=== PATIENT | female | born 1950 | race Caucasian/White ===

== ENCOUNTER 2020-09-05 08:05 | Outpatient (REF) | payer MEDICARE, SELFPAY ==
[2020-09-11 22:51] LABS: HPV 16 RNA DETECTED (NOT DETECTED); HPV mRNA E6/E7 rflx Detected (Not Detected)
== END 2020-09-05 08:06 | disposition home or self-care (01) ==
LOC: HO.LAB 08:05
PROVIDERS: PCP Hospitalist; Visit Provider Advanced Practice Midwife
DX: Z01.419 Encounter for gynecological examination (general) (routine) without abnormal findings (principal); M85.89 Other specified disorders of bone density and structure, multiple sites; Z91.89 Other specified personal risk factors, not elsewhere classified
CPT/HCPCS: 87624; 87625; 88141; 88142

== ENCOUNTER 2020-11-16 08:41 | Outpatient (REF) | payer MEDICARE, SELFPAY | END 2020-11-16 08:42 | disposition home or self-care (01) | LOC: HO.LAB 08:41 | PROVIDERS: PCP Hospitalist; Visit Provider Obstetrics & Gynecology | DX: R87.810 Cervical high risk human papillomavirus (HPV) DNA test positive (principal) | CPT/HCPCS: 57454; 57456; 88305 ==

== ENCOUNTER → 2020-11-30 11:38 | Outpatient (BNVA) | payer MEDICARE, SELFPAY | PROVIDERS: PCP Hospitalist; Visit Provider Obstetrics & Gynecology | DX: R87.810 Cervical high risk human papillomavirus (HPV) DNA test positive (principal) | CPT/HCPCS: Q3014 ==

== ENCOUNTER 2021-06-07 08:45 | Outpatient (REF) | payer MEDICARE, SELFPAY ==
--- NOTE | ~2021-06-07 | MM_ITS ---
EXAMINATION: MM SCREENING DIGITAL BREAST TOMOSYNTHESIS, BILATERAL CLINICAL INFORMATION: Screening. Asymptomatic. The lifetime risk of breast cancer based on the Tyrer-Cuzick Model is 5%. COMPARISON: Mammography: 06/01/2020, 03/04/2019, 03/03/2018 TECHNIQUE: Digital breast tomosynthesis is performed in both the craniocaudal and mediolateral oblique views along with computer-aided detection (CAD). Synthesized 2D images are generated from the tomosynthesis. FINDINGS: There are scattered areas of fibroglandular density (ACR BI-RADS breast composition Category b). There is fine fibronodular parenchymal pattern similar to prior studies. Dominant nodule central outer left breast on CC view is stable from prior exams. No developing density or architectural abnormality. There are scattered benign punctate calcifications. The axilla and skin contours are unremarkable. No significant changes. MM/MM tomosynthesis screening BI IMPRESSION: No mammographic evidence of malignancy. ASSESSMENT: BI-RADS 2: Benign RECOMMENDATION: Routine annual mammography screening. This patient's information was entered into a reminder system with a target due date for their next mammogram.
== END 2021-06-07 08:46 | disposition home or self-care (01) ==
LOC: HO.MAMMO 08:45
PROVIDERS: PCP Hospitalist; Visit Provider Hospitalist
DX: Z12.31 Encounter for screening mammogram for malignant neoplasm of breast (principal)
CPT/HCPCS: 77063; 77067

== ENCOUNTER 2021-09-07 09:28 | Outpatient (REF) | payer MEDICARE, SELFPAY ==
[2021-09-11 21:16] LABS: HPV mRNA E6/E7 rflx Not Detected (Not Detected)
== END 2021-09-07 09:29 | disposition home or self-care (01) ==
LOC: HO.LAB 09:28
PROVIDERS: PCP Hospitalist; Visit Provider Advanced Practice Midwife
DX: Z01.419 Encounter for gynecological examination (general) (routine) without abnormal findings (principal); Z11.51 Encounter for screening for human papillomavirus (HPV); Z91.89 Other specified personal risk factors, not elsewhere classified
CPT/HCPCS: 87624; 88142

== ENCOUNTER 2022-01-15 09:07 | Outpatient (REF) | payer MEDICARE, SELFPAY ==
[2022-01-15 14:49] LABS: CT PCR NOT DETECTED (Not Detect.); NG PCR NOT DETECTED (Not Detect.)
[2022-01-16 09:21] LABS: BV Int Neg Control Negative (Negative); BV Int Pos Control Positive (Positive)
== END 2022-01-15 09:08 | disposition home or self-care (01) ==
LOC: HO.LAB 09:07
PROVIDERS: PCP Hospitalist; Visit Provider Advanced Practice Midwife
DX: G89.29 Other chronic pain (principal); R10.2 Pelvic and perineal pain
CPT/HCPCS: 87480; 87491; 87510; 87591; 87660; 99212

== ENCOUNTER 2022-01-17 10:53 | Outpatient (REF) | payer MEDICARE, SELFPAY ==
--- NOTE | ~2022-01-17 | US_ITS ---
EXAMINATION: US PELVIS CLINICAL INFORMATION: Pelvic and perineal pain; postmenopausal patient. COMPARISON: None TECHNIQUE: Ultrasound of the pelvis is performed using both transabdominal and transvaginal transducers along with Doppler. Transvaginal imaging is performed due to inadequate visualization transabdominally. FINDINGS: Uterus: The uterus is anteverted and anteflexed. The uterus measures 6.6 x 2.7 x 5.3 cm. The double wall endometrial thickness is 1 mm. A 3 mm cyst or minimal fluid collection is seen within the endometrium. The uterus is smooth in contour and has normal myometrial echogenicity. There are myometrial calcifications, likely tiny fibroids. There is prominent myometrial vasculature. No visible fibroid. Nabothian cysts are seen within the cervix. Adnexa: Both ovaries are visualized. There is normal color flow to the adnexa. There is no ovarian torsion. There is no pelvic ascites or fluid collection. Right ovary measures 1.1 x 0.9 x 1.2 cm, volume 0.6 mL. Left ovary measures 1.1 x 0.8 x 1.0 cm, volume 0.5 mL. US/US pelvic and transvaginal IMPRESSION: 1. There are tiny calcified uterine fibroids. 2. Nabothian cysts are seen within the cervix. 3. A 3 mm cyst or tiny fluid collection is seen within the endometrial canal. There is no postmenopausal thickening of the endometrial stripe.
== END 2022-01-17 10:54 | disposition home or self-care (01) ==
LOC: HO.US 10:53
PROVIDERS: PCP Hospitalist; Visit Provider Advanced Practice Midwife
DX: R10.2 Pelvic and perineal pain (principal)
CPT/HCPCS: 76830; 76856

== ENCOUNTER → 2022-01-29 11:16 | Outpatient (BNVA) | payer MEDICARE, SELFPAY | PROVIDERS: PCP Hospitalist; Visit Provider Advanced Practice Midwife | DX: R10.2 Pelvic and perineal pain (principal); N76.0 Acute vaginitis; B96.89 Other specified bacterial agents as the cause of diseases classified elsewhere; Z71.2 Person consulting for explanation of examination or test findings | CPT/HCPCS: Q3014 ==

== ENCOUNTER 2022-02-05 08:32 | Outpatient (REF) | payer MEDICARE, SELFPAY | END 2022-02-05 08:33 | disposition home or self-care (01) | LOC: HO.LAB 08:32 | PROVIDERS: PCP Hospitalist; Visit Provider Obstetrics & Gynecology | DX: R87.610 Atypical squamous cells of undetermined significance on cytologic smear of cervix (ASC-US) (principal) | CPT/HCPCS: 57456; 88305 ==

== ENCOUNTER → 2022-03-11 11:49 | Outpatient (BNVA) | payer MEDICARE, SELFPAY | PROVIDERS: Visit Provider Obstetrics & Gynecology | DX: N87.0 Mild cervical dysplasia (principal) | CPT/HCPCS: Q3014 ==

== ENCOUNTER 2022-06-10 08:41 | Outpatient (REF) | payer MEDICARE, SELFPAY ==
--- NOTE | ~2022-06-10 | MM_ITS ---
EXAMINATION: MM SCREENING DIGITAL BREAST TOMOSYNTHESIS, BILATERAL CLINICAL INFORMATION: Screening. Asymptomatic. The lifetime risk of breast cancer based on the Tyrer-Cuzick Model is 5.1%. COMPARISON: Mammography: 06/07/2021 and studies dating back to 10/25/2013. TECHNIQUE: Digital breast tomosynthesis is performed in both the craniocaudal and mediolateral oblique views along with computer-aided detection (CAD). Synthesized 2D images are generated from the tomosynthesis. FINDINGS: There are scattered areas of fibroglandular density (ACR BI-RADS breast composition Category b). No new abnormal dominant mass is appreciated. Some vascular calcifications are noted within the left breast. Within the inferior aspect of the right breast anteriorly, there is a developing group of calcifications for which spot magnification views in craniocaudal and 90-degree mediolateral views is recommended. MM/MM tomosynthesis screening BI IMPRESSION: Right breast calcifications for further evaluation as described. ASSESSMENT: BI-RADS 0: Incomplete - Need Additional Imaging Evaluation. RECOMMENDATION: 1. Additional views of the right breast. 2. Targeted ultrasound if warranted after review of the additional views. 3. Radiology department staff will contact the patient for additional imaging.
== END 2022-06-10 08:42 | disposition home or self-care (01) ==
LOC: HO.MAMMO 08:41
PROVIDERS: PCP Hospitalist; Visit Provider Hospitalist
DX: Z12.31 Encounter for screening mammogram for malignant neoplasm of breast (principal)
CPT/HCPCS: 77063; 77067

== ENCOUNTER 2022-06-28 13:51 | Outpatient (REF) | payer MEDICARE, SELFPAY ==
--- NOTE | ~2022-06-28 | MM_ITS ---
EXAMINATION: MM DIAGNOSTIC DIGITAL MAMMOGRAPHY, RIGHT CLINICAL INFORMATION: Recall from screening for calcifications central anterior 3:00 right breast. COMPARISON: Mammography: 06/10/2022, 06/07/2021, 06/01/2000. TECHNIQUE: Digital mammography is performed in the following views: Magnification CC, magnification ML. FINDINGS: There are scattered areas of fibroglandular density (ACR BI-RADS breast composition Category b). The additional magnification views show grouped coarse calcifications in the anterior central 3:00 position, suspect fibroadenomatous change. Calcifications will be reassessed again in 6 months to include magnification views. Results are discussed with the patient at time of visit. MM/MM added views RT IMPRESSION: Probable benign calcifications anterior central inner right breast, possibly fibroadenomatous change. ASSESSMENT: BI-RADS 3: Probably Benign RECOMMENDATION: Diagnostic right mammography in 6 months. This patient's information was entered into a reminder system with a target due date for their next mammogram.
== END 2022-06-28 13:52 | disposition home or self-care (01) ==
LOC: HO.MAMMO 13:51
PROVIDERS: PCP Hospitalist; Visit Provider Advanced Practice Midwife
DX: R92.1 Mammographic calcification found on diagnostic imaging of breast (principal)
CPT/HCPCS: 77065

== ENCOUNTER 2023-01-08 14:17 | Outpatient (REF) | payer MEDICARE, SELFPAY ==
--- NOTE | ~2023-01-08 | MM_ITS ---
EXAMINATION: MM DIAGNOSTIC DIGITAL BREAST TOMOSYNTHESIS, RIGHT CLINICAL INFORMATION: Short interval six-month follow-up probable benign calcifications anterior 1:00 right breast, possibly fibroadenomatous change. The lifetime risk of breast cancer based on the Tyrer-Cuzick Model is 5%. COMPARISON: Mammography: 06/28/2022, 06/10/2022 (BI-RADS 0), 06/07/2021, 06/01/2020, 03/04/2019 TECHNIQUE: Digital breast tomosynthesis is performed in both the craniocaudal and mediolateral oblique views along with computer-aided detection (CAD). Synthesized 2D images are generated from the tomosynthesis. Additional magnification right CC and magnification right LM views are obtained. FINDINGS: There are scattered areas of fibroglandular density (ACR BI-RADS breast composition Category b). Fibronodular parenchymal pattern is similar to prior exams. There is no significant mass or architectural abnormality or developing density. The axilla and skin contours are unremarkable. Right breast calcifications for follow-up 1:00 position are coarse and possibly fibroadenomatous change. There are no significant changes. Calcifications will be reassessed at time of annual bilateral mammography, due in 6 months. Results are provided to the patient at time of visit by the technologist. MM/MM tomosynthesis diagnostic RT IMPRESSION: -Probable benign calcifications 1:00 possibly fibroadenomatous change. -No significant changes from prior exam. ASSESSMENT: BI-RADS 3: Probably Benign RECOMMENDATION: Diagnostic mammography at time of annual bilateral mammography, due in 6 months. This patient's information was entered into a reminder system with a target due date for their next mammogram.
== END 2023-01-08 14:18 | disposition home or self-care (01) ==
LOC: HO.MAMMO 14:17
PROVIDERS: PCP Hospitalist; Visit Provider Advanced Practice Midwife
DX: R92.1 Mammographic calcification found on diagnostic imaging of breast (principal)
CPT/HCPCS: 77061; 77065

== ENCOUNTER 2023-03-20 08:34 | Outpatient (REF) | payer MEDICARE, SELFPAY ==
[2023-03-25 10:13] LABS: HPV mRNA E6/E7 rflx Not Detected (Not Detected)
== END 2023-03-20 08:35 | disposition home or self-care (01) ==
LOC: HO.LNP 08:34
PROVIDERS: PCP Hospitalist; Visit Provider Obstetrics & Gynecology
DX: Z01.419 Encounter for gynecological examination (general) (routine) without abnormal findings (principal); Z11.51 Encounter for screening for human papillomavirus (HPV)
CPT/HCPCS: 87624; 88142; G0101

== ENCOUNTER 2023-06-25 12:56 | Outpatient (REF) | payer MEDICARE, SELFPAY ==
--- NOTE | ~2023-06-25 | MM_ITS ---
EXAMINATION: MM DIAGNOSTIC DIGITAL BREAST TOMOSYNTHESIS, BILATERAL CLINICAL INFORMATION: 6 month (second) follow-up right breast calcifications. Patient also due for bilateral screening. COMPARISON: Mammography: 01/08/2023, 06/28/2022, 06/10/2022, 06/07/2021. TECHNIQUE: Digital breast tomosynthesis is performed in both the craniocaudal and mediolateral oblique views along with computer-aided detection (CAD). Synthesized 2D images are generated from the tomosynthesis. In addition, 2-D spot magnification right CC and ML views were performed. FINDINGS: There are scattered areas of fibroglandular density (ACR BI-RADS breast composition Category b). The grouped microcalcifications in the right breast, 1:00 position, anterior one third, are somewhat coarse in appearance, and grossly stable from 6 months prior. There is an underlying lobular mass, suggesting degenerating fibroadenoma. These remain probably benign. Six-month interval follow-up recommended to ensure stability. The somewhat nodular parenchymal pattern is stable from prior exams. Scattered bilateral benign-appearing calcifications remain unchanged. No definite developing mass, area of architectural distortion, or suspicious calcifications. MM/MM tomosynthesis diagnostic BI IMPRESSION: Right breast 1:00 anterior somewhat coarse appearing probably benign calcifications remain stable over one year. These most likely relate to a degenerating fibroadenoma. Recommend 6 month interval follow-up right breast diagnostic mammography to include standard magnification views to ensure stability. Goal is to establish a two-year stability. Otherwise, benign findings both breasts. No findings suspicious for malignancy. ASSESSMENT: BI-RADS BI-RADS 3 - Probably benign finding(s) - 6 month follow-up suggested RECOMMENDATION: 6 Month F/U Results were provided to the patient at time of visit by the technologist. This patient's information was entered into a reminder system with a target due date for their next mammogram.
--- NOTE | ~2023-06-25 | MM_ITS ---
EXAMINATION: BONE DENSITOMETRY CLINICAL INDICATION: Menopausal and female climacteric states. COMPARISON: Previous BD dated 03/04/2019 and baseline BD dated 02/28/2017. TECHNIQUE: Using a [employer] DXA System (software version: 13.1) manufactured by [email or web address], dual-energy x-ray absorptiometry was performed of the lumbar spine and left hip. The images are of good technical quality. Summary results are attached. FINDINGS: LEFT FEMUR, NECK: Current: BMD 0.758 g/cm2, Z-score -0.4, T-score -2.0, osteopenia. Prior: BMD 0.814 g/cm2. Baseline: BMD 0.799 g/cm2. LEFT FEMUR, TOTAL: Current: BMD 0.844 g/cm2, Z-score 0.0, T-score -1.3, osteopenia, 4.8% decrease from previous, 0.5% decrease from baseline (<5% change is not significant). Prior: BMD 0.887 g/cm2. Baseline: BMD 0.848 g/cm2. AP SPINE L1-L4: Current: BMD 1.016 g/cm2, Z-score 0.0, T-score -1.4, osteopenia, 2.7% decrease from previous, 2.9% decrease from baseline (<5% change is not significant). Prior: BMD 1.044 g/cm2. Baseline: BMD 1.046 g/cm2. IDENTIFIED RISK FACTORS: Menopause. HISTORY OF FRACTURE: None listed. MEDICATIONS: None listed. MM/XR DEXA axial skeleton IMPRESSION: 1. DIAGNOSIS: Osteopenia based on the lowest T-score value of -2.0 in the femoral neck applying World Health Organization criteria. 2. 10-YEAR FRACTURE RISK PREDICTION, FRAX: Major osteoporotic fracture (clinical spine, forearm, hip or shoulder) 12.6%. Hip fracture 2.7%. 3. Treatment Recommendations: NOF guidelines recommend consideration for treatment in postmenopausal women and men age 50 and older presenting with the following: -A hip or vertebral (clinical or morphometric) fracture. -T-score less than or equal to -2.5 at the femoral neck or spine after appropriate evaluation to exclude secondary causes. -Low bone mass at the hip or spine and a 10-year fracture probability by FRAX of greater than or equal to 3% for hip fracture or greater than or equal to 20% for major osteoporotic fracture based on the [place] adapted WHO algorithm. 4. Other Recommendations: All treatment decisions require clinical judgment and consideration of individual patient factors, including patient preferences, comorbidities, previous drug use, risk factors not captured in the FRAX model (e.g. frailty, falls, vitamin D deficiency, increased bone turnover, interval significant decline in bone density) and possible under or overestimation of fracture risk by FRAX. Additional medical evaluation for secondary cause of low bone mineral density may be appropriate. FUTURE SCAN RECOMMENDATION: People with diagnosed cases of osteoporosis or at high risk for fracture should have regular bone mineral density tests. For patients eligible for Medicare, routine testing is allowed once every 2 years. The testing frequency can be increased to one year for patients who have rapidly progressing disease, those who are receiving or discontinuing medical therapy to restore bone mass, or have additional risk factors.
== END 2023-06-25 12:57 | disposition home or self-care (01) ==
LOC: HO.MAMMO 12:56
PROVIDERS: Visit Provider Hospitalist
DX: Z13.820 Encounter for screening for osteoporosis (principal); R92.1 Mammographic calcification found on diagnostic imaging of breast; Z78.0 Asymptomatic menopausal state
CPT/HCPCS: 77062; 77066; 77080

== ENCOUNTER → 2023-06-25 13:00 | Outpatient (BNV) | payer MEDICARE, SELFPAY | PROVIDERS: Visit Provider Radiology Diagnostic Radiology | DX: N95.1 Menopausal and female climacteric states (principal) | CPT/HCPCS: 77062; 77066; 77080; G0279 ==

== ENCOUNTER 2023-07-02 08:44 | Outpatient (AMB) | payer MEDICARE, SELFPAY ==
[2023-07-02 09:12] VITALS: BP 104/66; BMI 26.5
--- NOTE | 2023-07-02 09:12 | A.OFFVIS_ITS ---
Intake Vital Signs 07/02/23 09:12 Height 5 ft 8 in Weight 174 lb BMI 26.5 BP 104/66 Intake Visit Reasons: dexa follow up [employer] Coordinator Required: No Allergies No Known Allergies Allergy (Verified 07/02/23 09:13) Is last menstrual period known: No Post menopausal: Yes Patient : No HPI HPI Comments History of Present Illness Details The patient is presenting for follow up regarding DEXA scan results. T score @ spine and femoral Neck respectively were=-1.4 /-2 and 10 year FRAX risk = 12.6/2.7 % for severe osteoporosis and fracture. 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 Hx of varicose veins Hx of Guillain-Ivanhoe syndrome Surgical History Hx of cervical biopsy H/O varicose vein stripping Family History Father Family history of Alzheimer's disease History of dementia Mother Family history of Alzheimer's disease History of dementia Paternal Grandmother Family history of Alzheimer's disease History of dementia Paternal Grandfather Family history of Alzheimer's disease History of dementia Brother History of COPD Social History Housing: Apartment Alcohol intake: current Alcohol intake frequency: a few times a month Patient Tobacco Use Status: Never used Tobacco e-Cigarette/Vaping Use: Never Used Patient : No Current occupational status: unemployed Sexual orientation: Straight/Heterosexual Gender identity: Female Cognitive needs: No Hearing needs: No Vision needs: Yes Female Reproductive History Menstrual Age of Menarche: 15 control method: none Date of last pap smear: 03/21/23 Date of Mammogram: 06/25/23 Date of last Bone Density Screenin06/25/23 Review of Systems Const All systems reviewed & are unremarkable except as noted in HPI and below Reports as per HPI and Reports no additional complaints GI Reports no additional complaints Reports no additional complaints Physical Exam Vital Signs: Last Vital Signs BP 104/66 07/02/23 09:12 BMI result Body Mass Index 26.5 Assessment & Plan Assessment & Plan (1) Osteopenia: Code(s): M85.80 - Other specified disorders of bone density and structure, unspecified site Plan: Discussed with the patient the DEXA results and FRAX risk. FRAX risk and T score showed no evidence of osteoporosis. Discussed with the patient all the options for osteoporosis prevention including lifestyle modifications including Ca+D supplements 1200 mg po qd/800 MIU, Weight bearing exercises and proteine supplements. The patient verbalized understanding and agreed plan will repeat DEXA in 2 years. Coding Level of Care Code Est Pt Level 3 (77503) Diagnoses Osteopenia M85.80
== END 2023-07-02 09:38 | disposition home or self-care (01) ==
PROVIDERS: PCP Hospitalist; Visit Provider Obstetrics & Gynecology
DX: M85.80 Other specified disorders of bone density and structure, unspecified site (principal)
CPT/HCPCS: 99213

== ENCOUNTER → 2023-07-02 08:44 | Outpatient (BNVA) | payer MEDICARE, SELFPAY | PROVIDERS: PCP Hospitalist; Visit Provider Obstetrics & Gynecology | DX: M85.80 Other specified disorders of bone density and structure, unspecified site (principal); Z78.0 Asymptomatic menopausal state | CPT/HCPCS: 99212 ==

== ENCOUNTER 2024-01-06 12:28 | Outpatient (AMB) | payer MEDICARE, SELFPAY ==
[2024-01-06 13:00] VITALS: BP 110/68; PULSE 79; TEMP 36.2; O2SAT 96; BMI 27.2
--- NOTE | 2024-01-06 13:00 | AM.OFFWIN_ITS ---
Intake Vital Signs 01/06/24 13:00 Height 5 ft 8 in Weight 179 lb BMI 27.2 BP 110/68 Blood Pressure Location Lt brachial Position Sitting Pulse 79 Pulse Source Pulse Oximeter Temp 97.1 F Temp Source Temporal Artery Scan Pulse Oximetry (%) 96 Oxygen Delivery Method Room Air Intake Visit Reasons: EP cough congestion dehydrated (lobby) Intake Note: pt is here today cough congestion dehydrated started 2 weeks ago Patient Tobacco Use Status: Never used Tobacco Allergies No Known Allergies Allergy (Verified 01/06/24 13:28) Medication List - Last Reconciled 01/06/24 by Usman Murrieta MD No Known Home Meds Do you need a note to return to daycare/school/sports/work: No HPI EP cough congestion dehydrated (lobby) HPI Details Patient presents for a sick visit. Reporting symptoms of sinus congest ion, sore throat and difficulty swallowing. Low-grade fever. No family member is sick. No recent travel. Patient reports symptoms of malaise and fatigue. 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 Hx of varicose veins Hx of Guillain-Krakow syndrome Surgical History Hx of cervical biopsy H/O varicose vein stripping Family History Father Family history of Alzheimer's disease History of dementia Mother Family history of Alzheimer's disease History of dementia Paternal Grandmother Family history of Alzheimer's disease History of dementia Paternal Grandfather Family history of Alzheimer's disease History of dementia Brother History of COPD Social History Housing: Apartment Alcohol intake: current Alcohol intake frequency: a few times a month Patient Tobacco Use Status: Never used Tobacco e-Cigarette/Vaping Use: Never Used Current occupational status: unemployed Sexual orientation: Straight/Heterosexual Gender identity: Female Cognitive needs: No Hearing needs: No Vision needs: Yes Female Reproductive History Menstrual Age of Menarche: 15 Physical Exam Vital Signs: Last Vital Signs Temp 97.1 F 01/06/24 13:00 Pulse 79 01/06/24 13:00 BP 110/68 01/06/24 13:00 Pulse Ox 96 01/06/24 13:00 Oxygen Delivery Method Room Air 01/06/24 13:00 BMI result Body Mass Index 27.2 Const General: cooperative and healthy appearing Nutritional Appearance: well nourished Orientation/consciousness: patient oriented x3 Limitations: no limitations HEENT Head: Yes normal to inspection Eyes General: appearance normal, both eyes and all related structures Neck Neck: Yes normal visual inspection Chest Chest palpation & inspection: normal palpation of entire chest wall Resp Effort & Inspection: normal respiratory effort Neuro General: patient oriented x3 Assessment & Plan Assessment & Plan (1) Upper respiratory tract infection: Code(s): J06.9 - Acute upper respiratory infection, unspecified Plan: Antibiotics ordered. Increase fluid intake. Tylenol for aches and pains. If symptoms worsen, follow-up here for a recheck. Coding Level of Care Code Est Pt Level 3 (06803) Diagnoses Upper respiratory tract infection J06.9
== END 2024-01-06 13:36 | disposition home or self-care (01) ==
PROVIDERS: PCP Hospitalist; Visit Provider Internal Medicine
DX: J06.9 Acute upper respiratory infection, unspecified (principal)
CPT/HCPCS: 99213

== ENCOUNTER 2024-01-23 12:53 | Outpatient (REF) | payer MEDICARE, SELFPAY ==
--- NOTE | ~2024-01-23 | MM_ITS ---
EXAMINATION: MM DIAGNOSTIC DIGITAL BREAST TOMOSYNTHESIS, RIGHT CLINICAL INFORMATION: 6 month follow-up (third) right breast calcifications which are probably benign upper slightly inner quadrant, anterior one third. COMPARISON: Mammography: 06/25/2023, 01/08/2023, 06/28/2022, 06/10/2022, 06/07/2021. TECHNIQUE: Digital right breast tomosynthesis is performed in both the craniocaudal and mediolateral oblique views along with computer-aided detection (CAD). Synthesized 2D images are generated from the tomosynthesis. In addition to standard views, spot magnification right CC and LM views were obtained of the right breast. FINDINGS: There are scattered areas of fibroglandular density (ACR BI-RADS breast composition Category b). The grouped microcalcifications in the right breast, 1:00 position, anterior one third, are somewhat coarse in appearance, and grossly stable from 6 months prior. There is an underlying lobular mass, suggesting degenerating fibroadenoma. These remain probably benign. Six-month interval follow-up recommended to ensure stability. No new suspicious findings in the right breast. Parenchymal pattern is unchanged from priors. MM/MM tomosynthesis diagnostic RT IMPRESSION: There are no significant changes from prior study. Stable probably benign calcifications 1:00 right breast. Recommend final six-month interval follow-up diagnostic right mammography to include standard magnification views, when the patient is due for bilateral screening. ASSESSMENT: BI-RADS BI-RADS 3 - Probably benign finding(s) - 6 month follow-up suggested RECOMMENDATION: 6 Month F/U Results were provided to the patient at time of visit by the technologist. This patient's information was entered into a reminder system with a target due date for their next mammogram.
== END 2024-01-23 12:54 | disposition home or self-care (01) ==
LOC: HO.MAMMO 12:53
PROVIDERS: PCP Nurse Practitioner Family; Visit Provider Nurse Practitioner Family
DX: R92.1 Mammographic calcification found on diagnostic imaging of breast (principal)
CPT/HCPCS: 77061; 77065

== ENCOUNTER → 2024-01-23 13:00 | Outpatient (BNV) | payer MEDICARE, SELFPAY | PROVIDERS: PCP Nurse Practitioner Family; Visit Provider Radiology Diagnostic Radiology | DX: R92.1 Mammographic calcification found on diagnostic imaging of breast (principal) | CPT/HCPCS: 77065; G0279 ==

== ENCOUNTER 2024-03-24 08:22 | Outpatient (AMB) | payer MEDICARE, SELFPAY ==
--- NOTE | 2024-03-24 08:26 | A.OFFVIS_ITS ---
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 No complaints. 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 Hx of varicose veins Hx of Guillain-[place] syndrome Surgical History Hx of cervical biopsy H/O varicose vein stripping Family History Father Family history of Alzheimer's disease History of dementia Mother Family history of Alzheimer's disease History of dementia Paternal Grandmother Family history of Alzheimer's disease History of dementia Paternal Grandfather Family history of Alzheimer's disease History of dementia Brother History of COPD Social History Housing: Apartment Alcohol intake: current Alcohol intake frequency: a few times a month Patient Tobacco Use Status: Never used Tobacco e-Cigarette/Vaping Use: Never Used Current occupational status: unemployed Sexual orientation: Straight/Heterosexual Gender identity: Female Cognitive needs: No Hearing needs: No Vision needs: Yes Female Reproductive History Menstrual Age of Menarche: 15 Menopause type: natural Total pregnancies: 4 Full term: 2 Number of Living Children: 2 Ab induced: 1 (one baby at 2 month of ) Date of last pap smear: 03/21/23 Date of Mammogram: 01/23/24 Review of Systems Const All systems reviewed & are unremarkable except as noted in HPI and below Card Reports as per HPI Resp Reports as per HPI GI Reports as per HPI and Reports no additional complaints Reports as per HPI Physical Exam Vital Signs: Last Vital Signs BP 120/74 03/24/24 08:27 BMI result Body Mass Index 26.3 Const General: cooperative, healthy appearing and comfortable Chest Chest palpation & inspection: normal inspection of the chest and normal palpation of entire chest wall Breast/axilla inspection: normal inspection of the breasts and normal inspection of the axillae Breast/axilla palpation: normal palpation of the breasts, normal palpation of the axillae and no axillary lymphadenopathy Resp Effort & Inspection: normal respiratory effort Auscultation: clear to auscultation bilaterally Percussion: percussion normal Cardio Palpation: normal PMI Rate: regular rate Rhythm: regular rhythm Heart sounds: no murmurs and no rubs Peripheral pulses: Peripheral pulses 2+ throughout GI Inspection: Yes normal to inspection Palpation (GI): Soft to palpation, nontender, no guarding, not rigid and No hepatosplenomegaly present Percussion: Yes normal to percussion Auscultation: normal bowel sounds Rectal Exam - Female: deferred General: Yes bladder normal to palpation External Female Exam: No lesion Speculum Exam - Vagina: normal appearance of the vagina, normal palpation, normal vaginal discharge and not erythematous Speculum Exam - Cervix: normal appearance of the cervix and normal palpation Bimanual exam- vagina & uterus: normal bimanual exam, normal palpation, uterine size normal, bladder normal to palpation, consistency normal and normal palpation Bimanual Exam- Adnexa, other: normal adnexae, no masses and no tenderness Assessment & Plan Assessment & Plan (1) Well female exam without gynecological exam: Comment: BOBBY 1 in 02/08 Code(s): Z00.00 - Encounter for general adult medical examination without abnormal findings Category: Medical Plan: Co testing done Counseled the patient about the recommended dietary allowance of 1200 mg of Calcium & 800 IU of vitamin D. Instructions given the patient to schedule next screening Mammogram in 08/12. Referred her for screening colonoscopy done. The patient was instructed to perform monthly self-breast exams and to schedule an annual exam in a year; All questions answered and the patient verbalized understanding. Orders: Referrals Gastroenterology Referral Z12.11 - Encounter for screening for malignant neoplasm of colon Coding Level of Care Code Est Pt Prev Care >65y(09554) Diagnoses Well female exam without gynecological exam Z00.00
[2024-03-24 08:27] VITALS: BP 120/74; BMI 26.3
== END 2024-03-24 08:52 | disposition home or self-care (01) ==
PROVIDERS: PCP Hospitalist; Referring Provider Hospitalist; Visit Provider Obstetrics & Gynecology
DX: Z01.419 Encounter for gynecological examination (general) (routine) without abnormal findings (principal)
CPT/HCPCS: G0101; Q0091

== ENCOUNTER 2024-03-24 08:22 | Outpatient (REF) | payer MEDICARE, SELFPAY ==
[2024-04-02 00:38] LABS: HPV mRNA E6/E7 rflx Not Detected (Not Detected)
== END 2024-03-24 08:23 | disposition home or self-care (01) ==
LOC: HO.LNP 08:22
PROVIDERS: PCP Hospitalist; Visit Provider Obstetrics & Gynecology
DX: Z01.419 Encounter for gynecological examination (general) (routine) without abnormal findings (principal)
CPT/HCPCS: 87624; 88142; G0101; Q0091

== ENCOUNTER 2024-04-01 11:24 | Outpatient (AMB) | payer MEDICARE, SELFPAY ==
--- NOTE | 2024-04-01 11:33 | A.OFFPC_ITS ---
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 Eligibility Counselor Required: No Accompanied by: Self / Same As Patient Allergies Seasonal Allergies Allergy (Intermediate, Verified 04/01/24 12:09) Itchy Eyes Medication List - Last Reconciled 04/01/24 by Joanna Pelayo, BUILDING CARPENTER-BC fluticasone propionate 50 mcg/actuation (Flonase Allergy Relief) 1 spray intrana hamzah BID valacyclovir 500 mg PO BID PRN Tobacco use date assessed: 04/01/24 Fall risk assessment: No Falls in past year Last assessed Fall Risk: 04/01/24 Dental Screening Dental Screen Date: 04/01/24 Did you have a dental visit in the last 12 months?: Yes Did you have a dental problem in the last 6 months where you did not have access to dental care?: No Was dental information given to patient?: Patient has dentist HPI HPI Comments History of Present Illness Details 73-year-old female with chronic pelvic p ain, ascus with negative high- risk HPV, herpes, BPPV, osteopenia, high risk of cervical cancer ADRI daughter, obesity, varicose veins, Stephy [place] status post varicose vein stripping Health Maintenance: Last Pap/HPV was in 04/11 was negative, repeat 03/2024 pending Last Mammogram was BI-RADS 3 in 02/10, the recommendation was to repeat in 6 months Cologaurd 04/2022 NEGATIVE Last Colonoscopy was long time ago > referred 03/2024 Last DEXA scan showed osteopenia in 07/12 repeat 2024 Eye exam 6 months ago Specialists: [facility] Here today w/ c/o itchy eyes Known allergies, uses flonase Bought OTC anti-itch eye drops, this made it worse. Burning and itchy. Usually wears contacts and has not been able to wear d/t her sx. Denies any new solution or lenses. Her sx started about 1 month ago. Has teary drainage, scant. Denies being stuck shut in the AM. Denies any changes in vision. 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 Hx of varicose veins Hx of Guillain-[place] syndrome Surgical History Hx of cervical biopsy H/O varicose vein stripping Family History Father Family history of Alzheimer's disease History of dementia Mother Family history of Alzheimer's disease History of dementia Paternal Grandmother Family history of Alzheimer's disease History of dementia Paternal Grandfather Family history of Alzheimer's disease History of dementia Brother History of COPD Social History Housing: Apartment Alcohol intake: current Alcohol intake frequency: a few times a month Patient Tobacco Use Status: Never used Tobacco e-Cigarette/Vaping Use: Never Used service: No Current occupational status: retired Sexual orientation: Straight/Heterosexual Gender identity: Female Cognitive needs: No Hearing needs: No Vision needs: Yes Female Reproductive History Menstrual Age of Menarche: 15 Questionnaire PHQ-9 Over the last 2 weeks, how often have you been bothered by any of the following problems? 1. Little interest or pleasure in doing things: not at all 2. Feeling down, depressed, or hopeless: not at all 3. Trouble falling or staying asleep, or sleeping too much: not at all 4. Feeling tired or having little energy: not at all 5. Poor appetite or overeating: not at all 6. Feeling bad about yourself - or that you are a failure or have let yourself or your family down: not at all 7. Trouble concentrating on things, such as reading the newspaper or watching television: not at all 8. Moving or speaking so slowly that other people could have noticed. Or the opposite - being so fidgety or restless that you have been moving around a lot more than usual: not at all 9. Thoughts that you would be better off or of hurting yourself in some way: not at all Total score: 0 Depression Screening Interpretation: Negative Depression Screening Done: Yes 74183 - PHQ-9 Billing: Yes Source: Developed by Drs. Buddy Saunders, Chey Mejias, Cal Nam and colleagues, with an educational katy from [employer]. Thrive Questionnaire Date Thrive assessed: 04/01/24 I am a: Patient What is your living situation today?: I have a steady place to live Within the past 12 months, did the food you bought not last and you didn't have the money to get more?: Never true Within the past 12 months, did you worry whether your food would run out before you got money to buy more?: Never true Do you have trouble paying for medicines?: No Do you have trouble getting transportation to medical appointments?: No Do you have trouble paying your heating and electricity bill?: No Do you have trouble taking care of your child, family member or friend?: No Do you have trouble with day-to-day activities such as bathing, preparing meals, shopping, managing finances, etc.?: No Are you currently unemployed and looking for a job?: No Are you interested in more education?: No Currently or been in a relationship where the following occur: no concerns reported THRIVE Score: 0 AUDIT C Alcohol Use Questionnaire (AUDIT-C) 1. How often do you have a drink containing alcohol?: Monthly or less 2. How many drinks containing alcohol do you have on a typical day when you are drinking?: 1 or 2 3. How often do you have six or more drinks on one occasion?: Never Total Score: 1 Score Reviewed/Action Taken: Yes CHAD-7 AMB Questionnaire CHAD-7 Date CHAD - 7 assessed: 04/01/24 Feeling nervous, anxious, or on edge: 0 = Not at all Not being able to stop or control worryin = Not at all Worrying too much about different things: 0 = Not at all Trouble relaxin = Not at all Being so restless that it is hard to sit still: 0 = Not at all Becoming easily annoyed or irritable: 0 = Not at all Feeling afraid as if something awful might happen: 0 = Not at all Total CHAD-7 score (0-4 normal; 5-9 mild; 10-14 moderate; 15-21 severe): 0 Source: Developed by Drs. Buddy Saunders, Chey Mejias, Cal Nam and colleagues, with an educational katy from [employer]. CHAD-7 Assessment Billing CHAD-7 Assessment Tool: CHAD-7 Assessment 73728 Review of Systems Const All systems reviewed & are unremarkable except as noted in HPI and below Physical exam (Primary Care) Vital Signs: Last Vital Signs Temp 97.7 F 04/01/24 11:39 Pulse 70 04/01/24 11:39 Resp 14 04/01/24 11:39 BP 102/70 04/01/24 11:39 Pulse Ox 95 04/01/24 11:39 Oxygen Delivery Method Room Air 04/01/24 11:39 BMI result Body Mass Index 27.0 BMI Assessment/Plan discussion: High BMI High, discussed plan: lifestyle Tobacco/Smoking Status: Tobacco use Status Tobacco use date assessed 04/01/24 04/01/24 11:46 Patient Tobacco Use Status Never used Tobacco 04/01/24 11:34 e-Cigarette/Vaping Use Never Used 04/01/24 11:34 PHQ-9: PHQ-9 Score PHQ-9: Total score 0 04/02/24 08:17 Depression Screening Interpretation: Negative Thrive Assessment: Date of Thrive Assessment Date Thrive assessed 04/01/24 04/01/24 11:46 Currently or been in a relationship where the following occur: no concerns reported Advance Care Planning discussion: Exists, not on file Date of discussion: 04/01/24 Who was present: self Forms completed: Health Care Proxy and MOLST Time spent: 1-15 minutes, not on file Actual minutes spent: 5 Const Other: Awake alert NAD Sclera clear bilat, conjunctiva mild injection bilat, no lid edema , drainage or photophobia Nares patent, turbinates pale and edematous, no sinus tenderness with palpation bilat TM intact mild congestion bilat MMM, pharynx WNL RRR LS CTAB Assessment and Plan Assessment & Plan (1) Seasonal allergies: Comment: Likely the cause of her symptoms. Advised to use Zyrtec daily along with azestyline eyedrops. I will re-evaluate her in 2 weeks' time for effectiveness Code(s): J30.2 - Other seasonal allergic rhinitis (2) Osteopenia: Code(s): M85.80 - Other specified disorders of bone density and structure, unspecified site Qualifiers: Osteopenia location: unspecified Qualified Code(s): M85.80 - Other specified disorders of bone density and structure, unspecified site (3) Menopausal state: Code(s): N95.1 - Menopausal and female climacteric states Plan: This note is constructed using voice recognition software. While every effort has been made to ensure accuracy in farm implement engine mechanic, still errors may have been included Sometimes, these errors may affect the content or meaning of the given sentence . Total time spent caring for the patient today was 30 minutes. This includes time spent before the visit reviewing the chart, time spent during the visit, and time spent after the visit on documentation Orders: Orders Comprehensive Met. Panel 04/01/24 M85.80 - Other specified disorders of bone density and structure, unspecified site, N95.1 - Menopausal and female climacteric states Microalbumin, Random (w Creat) 04/01/24 M85.80 - Other specified disorders of bone density and structure, unspecified site, N95.1 - Menopausal and female climacteric states LDL Cholesterol Direct 04/01/24 M85.80 - Other specified disorders of bone density and structure, unspecified site, N95.1 - Menopausal and female climacteric states Hemoglobin A1c 04/01/24 M85.80 - Other specified disorders of bone density and structure, unspecified site, N95.1 - Menopausal and female climacteric states TSH reflex Free T4 04/01/24 M85.80 - Other specified disorders of bone density and structure, unspecified site, N95.1 - Menopausal and female climacteric states Vitamin D 1,25 dihydroxy 04/01/24 M85.80 - Other specified disorders of bone density and structure, unspecified site, N95.1 - Menopausal and female climacteric states Medications: New cetirizine (Zyrtec) 10 mg PO DAILY 90 tabs 0RF azelastine 0.05% 1 drp ophthalmic (eye) BID 6 mL 0RF 30 days Patient Instructions: Use allergy medication allergy eyedrops as directed. Please get labs done today. Return to office in 2 weeks' time to follow up on chronic conditions, and lab review as well as follow up on effectiveness of the treatment rendered for your itchy eyes. Sooner as needed. Coding Level of Care Code Est Pt Level 4 (49179) Diagnoses Seasonal allergies J30.2 Osteopenia, unspecified location M85.80 Osteopenia location: unspecified Menopausal state N95.1 Additional Codes CHAD-7 Assessment Billing - CHAD-7 Assessment Tool: CHAD-7 Assessment 97093 ([id number]) Vital Signs *Quality* - Advance Care Planning discussion: Exists, not on file ([id number]) Vital Signs *Quality* - Time spent: 1-15 minutes, not on file ([id number])
[2024-04-01 11:39] VITALS: BP 102/70; PULSE 70; RESP 14; TEMP 36.5; O2SAT 95; BMI 27.0
== END 2024-04-01 12:41 | disposition home or self-care (01) ==
PROVIDERS: PCP Nurse Practitioner Family; Visit Provider Nurse Practitioner Family
DX: J30.2 Other seasonal allergic rhinitis (principal); M85.80 Other specified disorders of bone density and structure, unspecified site; N95.1 Menopausal and female climacteric states; Z00.00 Encounter for general adult medical examination without abnormal findings
CPT/HCPCS: 1124F; 99214

== ENCOUNTER 2024-04-01 12:28 | Outpatient (REF) | payer MEDICARE, SELFPAY ==
[2024-04-01 14:48] LABS: Estimated Average Glucose 111 mg/dL; Hemoglobin A1c % 5.5 % (<6.0)
[2024-04-01 14:59] LABS: Alanine Aminotransferase 15 U/L (0-31); Albumin Level 4.3 g/dL (3.5-5.0); Alkaline Phosphatase 65 U/L (39-117); Anion Gap 9 (12-20); Aspartate Amino Transferase 21 U/L (5-31); Bilirubin Total 1.6 mg/dL (0.0-1.0); Blood Urea Nitrogen 10 mg/dL (9-16); Calcium 9.8 mg/dL (8.4-10.2); Carbon Dioxide 27 mmol/L (22-29); Chloride 106 mmol/L (96-108); Estimated Glomerular Filt Rate > 60; Glucose Random 92 mg/dL (60-115); Potassium 3.6 mmol/L (3.3-5.1); Sodium 138 mmol/L (135-145); Total Protein 7.4 g/dL (6.5-8.0)
[2024-04-01 15:18] LABS: TSH reflex Free T4 1.39 uIU/mL (0.32-4.0)
[2024-04-01 15:29] LABS: Creatinine Urine 18.81 mg/dL; Microalbumin Urine < 5.0 mg/L
[2024-04-02 12:13] LABS: LDL Cholesterol Direct 146 mg/dL (<100)
[2024-04-06 00:19] LABS: VITAMIN D (1,25 OH) D3 52 pg/mL; Vit D (1,25-Dihydroxy) Total 52 pg/mL (18-72); Vitamin D (1,25 OH) D2 <8 pg/mL
== END 2024-04-01 12:29 | disposition home or self-care (01) ==
LOC: HO.WFDLDS 12:28
PROVIDERS: Visit Provider Nurse Practitioner Family
DX: M85.80 Other specified disorders of bone density and structure, unspecified site (principal); N95.1 Menopausal and female climacteric states
CPT/HCPCS: 36415; 80053; 82043; 82570; 82652; 83036; 83721; 84443

== ENCOUNTER 2024-04-20 08:58 | Outpatient (AMB) | payer MEDICARE, SELFPAY ==
--- NOTE | 2024-04-20 09:09 | MHC.PC.OV ---
Intake Visit Reasons: 2 weeks w me 30 min fu labs and eye itching Allergies Seasonal Allergies Allergy (Intermediate, Verified 04/20/24 09:09) Itchy Eyes Tobacco use date assessed: 04/01/24 Dental Screening Dental Screen Date: 04/01/24 HPI HPI Comments History of Present Illness Details 73-year-old female with chronic pelvic pain, ascus with negative high-risk HPV, herpes, BPPV, osteopenia, high risk of cervical cancer ADRI daughter, obesity, varicose veins, Stephy [place], Hyperlipidemia status post varicose vein stripping Health Maintenance: Last Pap/HPV was in 04/11 was negative, repeat 03/2024 pending Last Mammogram was BI-RADS 3 in 02/10, the recommendation was to repeat in 6 months Cologaurd 04/2022 NEGATIVE Last Colonoscopy was long time ago > referred 03/2024 Last DEXA scan showed osteopenia in 07/12 repeat 2024 Specialists: [facility] Labs from 04/01/2024 show a normal CMP with the exception of a mildly elevated total bilirubin 1.6, elevated direct LDL 146, normal vitamin-D, normal TSH, normal urine micro albumin creatinine ratio PFSH Medical History History of abnormal cervical Pap smear HPV (human papilloma virus) infection Osteopenia High risk for cervical cancer 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 Hx of varicose veins Hx of Guillain-[place] syndrome Surgical History Hx of cervical biopsy H/O varicose vein stripping Family History Father Family history of Alzheimer's disease History of dementia Mother Family history of Alzheimer's disease History of dementia Paternal Grandmother Family history of Alzheimer's disease History of dementia Paternal Grandfather Family history of Alzheimer's disease History of dementia Brother History of COPD Social History Housing: Apartment Alcohol intake: current Alcohol intake frequency: a few times a month Patient Tobacco Use Status: Never used Tobacco e-Cigarette/Vaping Use: Never Used service: No Current occupational status: retired Sexual orientation: Straight/Heterosexual Gender identity: Female Cognitive needs: No Hearing needs: No Vision needs: Yes Female Reproductive History Menstrual Age of Menarche: 15 Questionnaire Thrive Questionnaire Date Thrive assessed: 04/01/24 CHAD-7 AMB Questionnaire CHAD-7 Date CHAD - 7 assessed: 04/01/24 Source: Developed by Drs. Buddy Saunders, Chey Mejias, Cal Nam and colleagues, with an educational katy from [email or web address]. Physical exam (Primary Care) Tobacco/Smoking Status: Tobacco use Status Tobacco use date assessed 04/01/24 04/01/24 11:46 Patient Tobacco Use Status Never used Tobacco 04/01/24 11:34 e-Cigarette/Vaping Use Never Used 04/01/24 11:34 Thrive Assessment: Date of Thrive Assessment Date Thrive assessed 04/01/24 04/01/24 11:46 Coding
[2024-04-20 09:10] VITALS: BP 128/62; PULSE 67; O2SAT 97; BMI 27.2
--- NOTE | 2024-04-20 09:16 | AM.OFFVISMDC ---
Intake Vital Signs 04/20/24 09:10 04/20/24 09:18 Height 5 ft 8 in Weight 179 lb BMI 27.2 27.2 BP 128/62 Blood Pressure Location Lt brachial Position Sitting Pulse 67 Pulse Source Pulse Oximeter Pulse Oximetry (%) 97 Oxygen Delivery Method Room Air Intake Visit Reasons: 2 weeks w me 30 min fu labs and eye itching Allergies Seasonal Allergies Allergy (Intermediate, Verified 04/20/24 09:09) Itchy Eyes Medication List - Last Reconciled 04/20/24 by Joanna Pelayo, [facility]- azelastine 0.05% 1 drp ophthalmic (eye) BID 30 days cetirizine (Zyrtec) 10 mg PO DAILY fluticasone propionate 50 mcg/actuation (Flonase Allergy Relief) 1 spray intranasal BID valacyclovir 500 mg PO BID PRN HPI HPI Comments History of Present Illness Details Here today for AWV. 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), Hyperlipidemia, squamous cell ca left arm status post varicose vein stripping Health Maintenance: Last Pap/HPV was in 04/11 was negative, repeat 03/2024 pending Last Mammogram was BI-RADS 3 in 02/10, the recommendation was to repeat in 6 months Cologaurd 04/2022 NEGATIVE Last Colonoscopy was long time ago > referred 03/2024 Last DEXA scan showed osteopenia in 07/12 repeat 2024 PCV reports vaccines x 2 declined shingles & tdap Vision wears glasses, last exam 06/2023 Specialists: [facility] Family hx: Only change is sister now has Afib otherwise no change No new surgeries/hospitalizations HCP in the works, has MOLST at home not completed yet Zyrtec and eye drops working well with resolution of sx. reported 2 weeks ago. No more eye twitching. Screening labs from 04/01/2024 show a normal CMP with the exception of a mildly elevated total bilirubin 1.6, elevated direct LDL 146, normal vitamin-D, normal TSH, normal urine micro albumin creatinine ratio reviewed w/ her today. > declined meds at this time for cholesterol, wishes to try lifestyles and repeat labs in 1 year, aware goal LDL < 70 In regards to elevated bili, she offers no abd complaints General: Well developed, well nourished, in no acute distress. Appears stated age. Head: Normocephalic, atraumatic. Eyes: Pupils are equal, round and reactive to light and accommodation. Conjunctivae are clear. Vision grossly normal. Ears: TMs intact AU with trace effusions, EACS WNL Nose: Patent, without discharge. Mouth: There are no ulcers or lesions noted. No inflammation, no post nasal drip, no plaques nor exudates. Neck: Supple, no adenopathy or thyromegaly. Lungs: Clear to auscultation bilaterally. No rales, rhonchi or wheeze noted. Good air flow in all parks. Heart: Regular rate and rhythm. No murmurs, click, rubs or gallops are noted. Abdomen: Bowel sounds present in all quadrants. The abdomen is soft, nontender, with no masses or organomegaly noted. No hernias are noted. Musculoskeletal: Joints are nontender, without swelling, redness, or effusions. Range of motion is observed to be normal. Pulses: Peripheral pulses are equal and palpable bilaterally. Extremities: No clubbing, cyanosis nor edema is noted. + varicosities Neurologic: Gait and station normal. Cranial Nerves 2-12 intact. Motor strength grossly symmetrical and intact. No sensory loss. Balance normal. Skin: No rashes, ulcers, or lesions noted. Turgor is good. Skin color is good. Hair and nails are without abnormalities. Psych: Normal eye contact, affect and mood appropriate, and normal interactions. Patient is alert and appropriate to context. [facility] Medical History History of abnormal cervical Pap smear HPV (human papilloma virus) infection Osteopenia High risk for cervical cancer 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 Hx of varicose veins Hx of Guillain-Glyndon syndrome Surgical History Hx of cervical biopsy H/O varicose vein stripping Family History Father Family history of Alzheimer's disease History of dementia Mother Family history of Alzheimer's disease History of dementia Paternal Grandmother Family history of Alzheimer's disease History of dementia Paternal Grandfather Family history of Alzheimer's disease History of dementia Brother History of COPD Social History Housing: Apartment Alcohol intake: current Alcohol intake frequency: a few times a month Patient Tobacco Use Status: Never used Tobacco e-Cigarette/Vaping Use: Never Used service: No Current occupational status: retired Sexual orientation: Straight/Heterosexual Gender identity: Female Cognitive needs: No Hearing needs: No Vision needs: Yes Female Reproductive History Menstrual Age of Menarche: 15 Questionnaire Medicare Wellness Checkup What [age]?: [age] What gender do you identify with?: female During the past 4 weeks, how much have you been bothered by emotional problems such as feeling anxious, depressed, irritable, sad or downhearted, and blue?: not at all During the past 4 weeks, has your physical & emotional health limited your social activities with family, friends, neighbors, or groups?: not at all During the past 4 weeks, how much bodily pain have you generally had?: no pain During the past 4 weeks, was someone available to help you if you needed & wanted help?: yes, as much as I wanted During the past 4 weeks, what was the hardest physical activity you could do for at least 2 minutes?: very heavy Can you get to places out of walking distance without help? (For eg., can you travel alone on buses, taxis or drive your car?): Yes Can you go shopping for groceries or clothes without someone's help?: Yes Can you prepare your own meals?: Yes Can you do your housework without help?: Yes Because of any health problems, do you need the help of another person with your personal care needs such as eating, bathing, dressing or getting around the house?: Yes Can you handle your own money without help?: Yes During the past 4 weeks, how would you rate your health in general?: excellent During the past 4 weeks how have things been going for you?: very well; could hardly better Are you having difficulties driving your car?: no Do you always fasten your seat belt when you are in a car?: yes, usually During past 4 weeks, have you been bothered by the following: never: Falling or dizzy when standing up, Sexual problems?, Trouble eating well?, Teeth or denture problems?, Problems using the telephone? and Tiredness or fatigue? Have you fallen 2 or more times in the past year?: No Are you afraid of falling?: No Are you a smoker?: no During the past 4 weeks, how many drinks of wine, beer, or other alcoholic beverages did you have?: 1 drink or less per week Do you exercise for about 20 minutes 3 or more times a week?: yes, all the time Have you been given information to help with the following?: no: Hazards in your house that might hurt you? and no: Keeping track of your medications? How often do you have trouble taking medicines the way you have been told to take them?: I always take medicine as prescribed How confident are you that you can control & manage most of your health problems?: very confident What is your race?: White Mini Mental State Exam (MMSE) Orientation What is the (year) (season) (date) (day) (month)?: year, season, date, day and month Where are we (state) (county) (town or city) (hospital) (floor)?: state, county, town or city, hospital/clinic and floor Registration Name of 3 unrelated objects clearly and slowly, then ask patient to repeat all 3 of them. (1st repeat determines score. Make sure they can repeat all three): object 1, object 2 and object 3 Attention & Calculation (CHOOSE ONE) Spell WORLD backwards (DLROW): 5 letters Recall Ask patient to repeat the 3 items from question #3.: object 1, object 2 and object 3 Language Show patient a wristwatch & ask what it is. Repeat for pencil.: watch and pencil Ask the patient to repeat the phrase 'No ifs, ands, or buts' after you.: correct Ask the patient to 'take a piece of paper with their right hand' 'fold paper in half' 'place paper on floor': take paper in right hand, fold paper in half and place paper on floor Print the sentence 'CLOSE YOUR EYES' on a piece. If patient actually closes eyes then score.: followed written direction Give patient a blank piece of paper & ask to write a sentence. Score if it contains a noun & verb.: sentence contains subject and verb Ask patient to copy figure of intersecting pentagons exactly. Score if all 10 angles & 2 intersects are included.: all 10 angles present & 2 are intersected Score Score: 30 Activity of Daily Living Bathing - sponge bath, tub bath or shower: receives no assistance (gets in/out by self, if usual bathing means Dressing - getting clothes from closets & drawers, including inner/outer garments & fasteners.: gets clothes & gets completely dressed without help Toileting - going to the 'toilet room' for urine/bowel elimination & cleaning self/arranging clothes: goes to toilet room, cleans self, arranges clothes without help Transfer: moves in & out of bed and chair without help (may use support object) Continence: controls urination/bowel movements completely by self Feeding: feeds self without help Total Score: 0 Information obtained from: patient Traveling: independent Shopping: independent Preparing meals: independent Housework: independent Taking medicine: independent Managing money: independent PHQ-9 Over the last 2 weeks, how often have you been bothered by any of the following problems? 1. Little interest or pleasure in doing things: not at all 2. Feeling down, depressed, or hopeless: not at all 3. Trouble falling or staying asleep, or sleeping too much: not at all 4. Feeling tired or having little energy: not at all 5. Poor appetite or overeating: not at all 6. Feeling bad about yourself - or that you are a failure or have let yourself or your family down: not at all 7. Trouble concentrating on things, such as reading the newspaper or watching television: not at all 8. Moving or speaking so slowly that other people could have noticed. Or the opposite - being so fidgety or restless that you have been moving around a lot more than usual: not at all 9. Thoughts that you would be better off or of hurting yourself in some way: not at all Total score: 0 Depression Screening Interpretation: Negative Depression Screening Done: Yes 94059 - PHQ-9 Billing: Yes Source: Developed by Drs. Buddy Saunders, Chey Mejias, Cal Nam and colleagues, with an educational katy from [employer] Physical Exam Vital Signs: Last Vital Signs Pulse 67 04/20/24 09:10 BP 128/62 04/20/24 09:10 Pulse Ox 97 04/20/24 09:10 Oxygen Delivery Method Room Air 04/20/24 09:10 BMI result Body Mass Index 27.2 Office Procedures EKG [id number], Complete Assessment & Plan Assessment & Plan (1) Encounter for annual wellness visit (AWV) in Medicare patient: Code(s): Z00.00 - Encounter for general adult medical examination without abnormal findings (2) Osteopenia: Code(s): M85.80 - Other specified disorders of bone density and structure, unspecified site Qualifiers: Osteopenia location: unspecified Qualified Code(s): M85.80 - Other specified disorders of bone density and structure, unspecified site Plan: . (3) Menopausal state: Code(s): N95.1 - Menopausal and female climacteric states (4) Hyperlipidemia: Code(s): E78.5 - Hyperlipidemia, unspecified Qualifiers: Hyperlipidemia type: mixed hyperlipidemia Qualified Code(s): E78.2 - Mixed hyperlipidemia (5) Seasonal allergies: Comment: resolved w/ Zyrtec daily along with azestyline eyedrops. Code(s): J30.2 - Other seasonal allergic rhinitis Plan: . Plan . Orders: Orders Hemoglobin A1c 04/19/25 E78.5 - Hyperlipidemia, unspecified, M85.80 - Other specified disorders of bone density and structure, unspecified site, N95.1 - Menopausal and female climacteric states Lipid Panel 04/19/25 E78.5 - Hyperlipidemia, unspecified, M85.80 - Other specified disorders of bone density and structure, unspecified site, N95.1 - Menopausal and female climacteric states AMB EKG-In Office Today Z00.00 - Encounter for general adult medical examination without abnormal findings Comprehensive Jackson. Panel Fast 04/19/25 E78.5 - Hyperlipidemia, unspecified, M85.80 - Other specified disorders of bone density and structure, unspecified site, N95.1 - Menopausal and female climacteric states Vitamin D 25-OH Total 04/19/25 E78.5 - Hyperlipidemia, unspecified, M85.80 - Other specified disorders of bone density and structure, unspecified site, N95.1 - Menopausal and female climacteric states Patient Instructions: Return to the office in 1 year for an annual wellness visit, sooner as needed. Health screenings for women You should visit your health care provider from time to time, even if you are healthy. The purpose of these visits is to: Screen for medical issues Assess your risk for future medical problems Encourage a healthy lifestyle Update vaccinations and other preventive care services Help you get to know your provider in case of an illness Information Even if you feel fine, you should still see your provider for regular checkups. These visits can help you avoid problems in the future. For example, the only way to find out if you have high blood pressure is to have it checked regularly. High blood sugar and high cholesterol levels also may not have any symptoms in the early stages. A simple blood test can check for these conditions. There are specific times when you should see your provider or receive specific health screenings. The [place] Preventive Services Task Force publishes a list of recommended screenings. Below are screening guidelines for women ages 18 to 39. BLOOD PRESSURE SCREENING Your blood pressure should be checked at least once every 3 to 5 years if: Your blood pressure is in the normal range (top number less than 120 mm Hg and bottom number less than 80 mm Hg) You don't have risk factors for high blood pressure Ask your provider if you need your blood pressure checked more often if: The top number is 120 to 129 mm Hg or the bottom number is 70 to 79 mm Hg You have diabetes, heart disease, kidney problems, are overweight, or have certain other health conditions You have a first-degree relative with high blood pressure You are Black You had high blood pressure during a If the top number is 130 mm Hg or greater or the bottom number is 80 mm Hg or greater, this is considered stage 1 hypertension. Schedule an appointment with your provider to learn how you can reduce your blood pressure. Watch for blood pressure screenings in your area. Ask your provider if you can stop in to have your blood pressure checked. BREAST CANCER SCREENING Experts do not agree about the benefits of breast self-exams in finding breast cancer or saving lives. Talk to your provider about what is best for you. A screening mammogram is not recommended for most women under age 40. Your provider may discuss and recommend mammograms, MRI scans, or ultrasounds if you have an increased risk for breast cancer, such as: A mother or sister who had breast cancer at a young age (most often starting screening earlier than the age the close relative was diagnosed) You carry a high-risk genetic marker CERVICAL CANCER SCREENING Cervical cancer screening should start at age 21 years unless your provider advises otherwise. After the first test: Women ages 21 through 29 should have a Pap test every 3 years. Exoprts do not agree on whether HPV testing is recommended for this age group. Women ages 30 through 65 should be screened with either a Pap test every 3 years or the HPV test every 5 years or both tests every 5 years (called cotesting ). Women who have been treated for precancer (cervical dysplasia) should continue to have Pap tests for 20 years after treatment or until age 65, whichever is longer. If you have had your uterus and cervix removed (total hysterectomy), and you have not been diagnosed with cervical cancer or precancer (high grade cervical neoplasia), you do not need cervical cancer screening. CHOLESTEROL SCREENING Cholesterol screening should begin at: Age 45 for women with no known risk factors for coronary heart disease Age 20 for women with known risk factors for coronary heart disease Repeat cholesterol screening should take place: Every 5 years for women with normal cholesterol levels More often if changes occur in lifestyle (including weight gain and diet) More often if you have diabetes, heart disease, kidney problems, or certain other conditions DIABETES SCREENING You should be screened for diabetes starting at age 35 and then repeated every 3 years if you have no risk factors for diabetes. Screening may need to start earlier and be repeated more often if you have other risk factors for diabetes, such as: You have a first degree relative with diabetes. You are overweight or have obesity. You have high blood pressure, prediabetes, or a history of heart disease. Screening for diabetes should be done if you are planning to become and you are overweight and have other risk factors such as high blood pressure. DENTAL EXAM Go to the dentist once or twice every year for an exam and cleaning. Your dentist will evaluate if you need more frequent visits. EYE EXAM Have an eye exam every 5 to 10 years before age 40. If you have vision problems, have an eye exam every 2 years or more often if recommended by your provider. You should have an eye exam that includes an examination of your retina (back of your eye) at least every year if you have diabetes. IMMUNIZATIONS Commonly needed vaccines include: Flu shot: get one every year. COVID-19 vaccine: ask your provider what is best for you. Tetanus-diphtheria and acellular pertussis (Tdap) vaccine: have one at or after age 19 as one of your tetanus-diphtheria vaccines if you did not receive it as an adolescent. Tetanus-diphtheria: have a booster (or Tdap) every 10 years. Varicella vaccine: receive 2 doses if you never had chickenpox or the varicella vaccine. Hepatitis B vaccine: receive 2, 3, or 4 doses, depending on your exact circumstances. Measles, mumps, and rubella (MMR) vaccine: receive 1 to 2 doses if you are not already immune to MMR. Your provider can tell you if you are immune. Ask your provider about the human papillomavirus (HPV) vaccine if: You have not received the HPV vaccine in the past You have not completed the full vaccine series (you should catch up on this shot) Ask your provider if you should receive other immunizations if you have certain health problems that increase your risk for some diseases such as pneumonia. INFECTIOUS DISEASE SCREENING Women who are sexually active should be screened for chlamydia and gonorrhea up until age 25. Women 25 years and older should be screened for chlamydia and gonorrhea if at high risk. Screening for hepatitis C: All adults ages 18 to 79 should get a one-time test for hepatitis C. people should be screened at every . Screening for human immunodeficiency virus (HIV): All people ages 15 to 65 should get a one-time test for HIV. Depending on your lifestyle and medical history, you may also need to be screened for infections such as syphilis and HIV, as well as other infections. PHYSICAL EXAM All adults should visit their provider from time to time, even if they are healthy. The purpose of these visits is to: Screen for disease Assess your risk of future medical problems Encourage a healthy lifestyle Update your vaccinations and other preventive care services Maintain a relationship with a provider in case of an illness Your height, weight, and BMI should be checked at every exam. During your exam, your provider may ask you about: Depression and anxiety Diet and exercise Alcohol and tobacco use Safety issues, such as using seat belts, smoke detectors, and intimate partner violence Your medicines and risk for interactions SKIN SELF-EXAM Your provider may check your skin for signs of skin cancer, especially if you're at high risk, such as if you: Have had skin cancer before Have close relatives with skin cancer Have a weakened immune system OTHER SCREENING Talk with your provider about colon cancer screening if you have a strong family history of colon cancer or polyps, or if you have had inflammatory bowel disease or polyps yourself. Routine bone density screening of women under 40 is not recommended. Quality Reporting (2019) Adult ([facility] 138//) Smoking risk assessment performed?: Yes Patient Tobacco Use Status: Never used Tobacco Depression screening performed: Yes Screen Results: Yes Negative screen Recommended changes: lifestyle, dietary and physical activity Recommended changes not done: lifestyle, dietary, physical activity and EKG Patient refused: No Systolic BP not done?: Yes Diastolic BP not done?: Yes BMI screening not done: No BMI High - Follow Up: No High-plan, No Above normal medication not ordered and No Referral not ordered BMI Low - Follow Up: No Low-plan, No Below normal medication not ordered and No Referral not ordered Controlling High BP: No Dialysis care, No Dialysis care assessment, No Dialysis access maint and No Dialysis education Immunizations ([facility] 147, 117) Annual Influenza Vaccine: No Flu Vaccine not done: medical reason Diabetes ([facility] 131/134/142) Diabetes Urine Protein: No Dialysis care, No Dialysis care assessment, No Dialysis access maint and No Dialysis education Fall Risk Screening ([facility] 139) Last assessed Fall Risk: 04/20/24 Fall risk assessment: No Falls in past year Dementia Assessment ([facility] 149) Cognitive assessment recorded: Yes Assessment of cognition with standardized tool: Yes Depression/Bipolar (159/160/161/177) PHQ-9: Total score: 0 Coding Level of Care Code Medicare First (G0438) Diagnoses Encounter for annual wellness visit (AWV) in Medicare patient Z00.00 Osteopenia, unspecified location M85.80 Osteopenia location: unspecified Menopausal state N95.1 Mixed hyperlipidemia E78.2 Hyperlipidemia type: mixed hyperlipidemia Seasonal allergies J30.2 CPT Codes Advance Care Planning - Time spent: 1-15 minutes, not on file ([id number]) EKG - CPT: [id number], Complete ([id number]) Advance Care Planning Advance Care Planning discussion: Exists, not on file Date of discussion: 04/20/24 Who was present: self Forms completed: Health Care Proxy and MOLST Time spent: 1-15 minutes, not on file Actual minutes spent: 5 Did not discuss due to Cultural/Spiritual beliefs: No
[2024-04-20 09:18] VITALS: BMI 27.2
== END 2024-04-20 09:59 | disposition home or self-care (01) ==
PROVIDERS: PCP Nurse Practitioner Family; Visit Provider Nurse Practitioner Family
DX: Z00.00 Encounter for general adult medical examination without abnormal findings (principal); M85.80 Other specified disorders of bone density and structure, unspecified site; N95.1 Menopausal and female climacteric states; E78.2 Mixed hyperlipidemia; J30.2 Other seasonal allergic rhinitis
CPT/HCPCS: 1124F; 93000; G0438

== ENCOUNTER 2024-07-29 10:53 | Outpatient (REF) | payer MEDICARE, SELFPAY ==
--- NOTE | ~2024-07-29 | MM_ITS ---
EXAMINATION: MM DIAGNOSTIC DIGITAL BREAST TOMOSYNTHESIS, BILATERAL CLINICAL INFORMATION: Six-month follow-up (final, for 2 year stability) probably benign calcifications anterior right breast, 3:00 axis. Patient also due for yearly. COMPARISON: Mammography: 01/23/2024, 06/25/2023, 01/08/2023, 06/28/2022 (BI-RADS 0), 06/10/2022, and exams dating back to 2017. TECHNIQUE: Digital breast tomosynthesis is performed in both the craniocaudal and mediolateral oblique views along with computer-aided detection (CAD). Synthesized 2D images are generated from the tomosynthesis. In addition, 2-D spot magnification right CC and right ML view x2 were also obtained. FINDINGS: There are scattered areas of fibroglandular density (ACR BI-RADS breast composition Category b). 3 probably benign calcifications in the anterior 3:00 right breast have become slightly more coarsened in the interval between 06/28/2022 and today, with no new calcifications. These are benign, with no evidence of aggressive casino change attendant 2 years. No further follow-up recommended. Otherwise, there are early benign vascular calcifications in the left breast. There are no suspicious masses, new suspicious grouped calcifications, or areas of architectural distortion in either breast. The somewhat nodular parenchymal pattern is stable from numerous prior exams. There is no skin or axillary abnormality. MM/MM tomosynthesis diagnostic BI IMPRESSION: -There are no findings suspicious for malignancy in either breast. -Calcifications in the anterior right breast 3:00 axis are benign, with no aggressive changes over two-year period. No further follow-up recommended. -Recommend the patient return to routine annual screening mammography. ASSESSMENT: BI-RADS BI-RADS 2 - Benign Findings RECOMMENDATION: 1 year F/U Results were provided to the patient at time of visit by the technologist. This patient's information was entered into a reminder system with a target due date for their next mammogram. Electronically signed by: Familia Malik MD 07/29/2024 12:29 PM EDT
== END 2024-07-29 10:54 | disposition home or self-care (01) ==
LOC: HO.MAMMO 10:53
PROVIDERS: PCP Nurse Practitioner Family; Visit Provider Nurse Practitioner Family
DX: R92.1 Mammographic calcification found on diagnostic imaging of breast (principal)
CPT/HCPCS: 77062; 77066

== ENCOUNTER → 2024-07-29 11:00 | Outpatient (BNV) | payer MEDICARE, SELFPAY | PROVIDERS: PCP Nurse Practitioner Family; Visit Provider Radiology Diagnostic Radiology | DX: R92.1 Mammographic calcification found on diagnostic imaging of breast (principal) | CPT/HCPCS: 77066; G0279 ==

== ENCOUNTER 2024-12-30 10:11 | Outpatient (AMB) | payer MEDICARE, SELFPAY ==
--- NOTE | 2024-12-30 10:20 | AM.OFFWIN_ITS ---
Intake Vital Signs 12/30/24 10:22 Weight 182 lb BP 120/78 Blood Pressure Location Lt brachial Position Sitting Pulse 68 Pulse Source Pulse Oximeter Pulse Oximetry (%) 98 Oxygen Delivery Method Room Air Intake Visit Reasons: EP-racing heart when exercising Intake Note: Patient here for elevated HR while exercising that she noticed within the last month or so. Patient Tobacco Use Status: Never used Tobacco Allergies Seasonal Allergies Allergy (Intermediate, Verified 12/30/24 10:23) Itchy Eyes Do you need a note to return to daycare/school/sports/work: No HPI HPI Comments History of Present Illness Details History of Present Illness - The patient is a 74-year-old female pr esenting with concerns of an elevated heart rate and increased shortness of breath. - She has noted an elevated heart rate, reaching up to 140 bpm during minimal exertion, such as attending exercise classes and climbing stairs to her third- floor apartment. She has been doing these classes and hadn't felt this way previously. - She experiences increased shortness of breath, particularly after climbing 3 sets of stairs to her home, feeling that it is harder to take a full breath at times. She notes she hasn't felt this way previously when ascending the same stairs. - The patient also reports feeling more tired than usual and complaints of tiredness without apparent changes in lifestyle or sleeping patterns. Also has weight gain with no changes in eating patterns. - These symptoms have developed recently and seem significantly different from her usual activity level, which included regular exercise classes and participation in a 10K race five years ago. She started wearing a watch that monitors her HR 3 years ago but only recently started using the HR function. She has not rec'd any notices on her watch indicating afib. - The patient's sister has been diagnose d with Atrial Fibrillation and had the Watchman procedure, which she ultimately regretted due to complications involv ing anticoagulation therapy and increased bleeding risk post-procedure. - There is a noted family history of hea rt disease, including heart failure in the patient's father. Physical Exam General: Cooperative, healthy appearing, comfortable, no acute distress and well developed Orientation: Patient oriented x3 Limitations: No limitations Head: Normal to inspection Ears: Hearing grossly normal bilaterally Nose: Normal external nose present Face and sinus: Normal facial exam Eyes: Appearance normal, both eyes and all related structures Neck: Normal visual inspection and Yes full ROM Respiratory: Normal respiratory effort. Able to speak in complete sentences. Clear to auscultation bilaterally Cardiovascular: Regular rate and rhythm. Normal S1 and S2. 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 Hx of varicose veins Hx of Guillain-[place] syndrome Surgical History Hx of cervical biopsy H/O varicose vein stripping Family History Father Family history of Alzheimer's disease History of dementia Mother Family history of Alzheimer's disease History of dementia Paternal Grandmother Family history of Alzheimer's disease History of dementia Paternal Grandfather Family history of Alzheimer's disease History of dementia Brother History of COPD Social History Housing: Apartment Alcohol intake: current Alcohol intake frequency: a few times a month Patient Tobacco Use Status: Never used Tobacco e-Cigarette/Vaping Use: Never Used service: No Current occupational status: retired Sexual orientation: Straight/Heterosexual Gender identity: Female Cognitive needs: No Hearing needs: No Vision needs: Yes Female Reproductive History Menstrual Age of Menarche: 15 Review of Systems Const All systems reviewed & are unremarkable except as noted in HPI and below Physical Exam Vital Signs: Last Vital Signs Pulse 68 12/30/24 10:22 BP 120/78 12/30/24 10:22 Pulse Ox 98 12/30/24 10:22 Oxygen Delivery Method Room Air 12/30/24 10:22 Assessment & Plan Assessment & Plan (1) Tachycardia: Code(s): R00.0 - Tachycardia, unspecified Plan: VSS, pt well appearing and PE unremarkable. After reviewing the patient's symptoms and family history, further diagnostic evaluations are necessary to determine the cause of her symptoms accurately. Explained to pt that I will message her PCP to do a further workup to investigate her symptoms of fatigue, elevated heart rates, weight gain, poor sleeping and shortness of breath during low to moderate physical activities. The patient has been educated on how to manually monitor her pulse rate and report any abnormalities, particularly irregular rhythms or significant elevations above the reported 140 bpm, during typical activities. The patient is informed that her PCP's office will contact her regarding follow-up actions and that she should proceed with it, as instructed. Potential interventions would be based on the outcomes of these evaluations. Patient was informed and verbally consented to the use of an ambient scribe for clinic note documentation during this visit. Coding Level of Care Code Est Pt Level 3 (59146) Diagnoses Tachycardia R00.0
[2024-12-30 10:22] VITALS: BP 120/78; PULSE 68; O2SAT 98
== END 2024-12-30 11:24 | disposition home or self-care (01) ==
PROVIDERS: PCP Nurse Practitioner Family; Visit Provider Physician Assistant
DX: R00.0 Tachycardia, unspecified (principal)

== ENCOUNTER → 2024-12-30 10:11 | Outpatient (BNVA) | payer MEDICARE, SELFPAY | PROVIDERS: PCP Nurse Practitioner Family; Visit Provider Physician Assistant | DX: R00.0 Tachycardia, unspecified (principal) | CPT/HCPCS: 99212 ==

== ENCOUNTER 2025-01-11 11:16 | Outpatient (AMB) | payer MEDICARE, SELFPAY ==
--- NOTE | 2025-01-11 11:18 | MHC.PC.OV ---
Vital Signs 01/11/25 11:24 Height 5 ft 8 in Weight 181 lb 8 oz BMI 27.6 BP 102/66 Blood Pressure Location Rt brachial Position Sitting Respiration 12 Pulse 68 Pulse Source Pulse Oximeter Temp 97.2 F Temp Source Oral Pulse Oximetry (%) 96 Oxygen Delivery Method Room Air Intake Visit Reasons: walk in f/u ^ HR Intake Note: Patient c/o sob, feeling palpitating pulse. Patient also wants to be clear to start working out. Position Classification Manager Required: No Allergies Seasonal Allergies Allergy (Intermediate, Verified 01/11/25 11:29) Itchy Eyes Medication List - Last Reconciled 01/11/25 by Joanna Pelayo, [facility]- azelastine 0.05% 1 drp ophthalmic (eye) BID 30 days cetirizine (Zyrtec) 10 mg PO DAILY fluticasone propionate 50 mcg/actuation (Flonase Allergy Relief) 1 spray intranasal BID valacyclovir 500 mg PO BID PRN Tobacco use date assessed: 01/11/25 Fall risk assessment: No Falls in past year Last assessed Fall Risk: 01/11/25 Dental Screening Dental Screen Date: 01/11/25 Did you have a dental visit in the last 12 months?: Yes Did you have a dental problem in the last 6 months where you did not have access to dental care?: No Was dental information given to patient?: Patient has dentist HPI HPI Comments History of Present Illness Details 74-year-old female with chronic pelvic pain, ascus with negative high-risk HPV, herpes, BPPV, osteopenia, high risk of cervical cancer ADRI daughter, obesity, varicose veins, 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 - Approximately one month ago, she began noticing increased heart rate with exertion, marked by her activity tracker watch. - When climbing stairs, her heart rate increased from a resting rate of 67 bpm to 145 bpm. - During a hip hop aerobics class, her heart rate occasionally surpassed 100 bpm, causing concern. - She experiences heart palpitations but denies chest pain, nausea, or any back pain. - The patient has a family history of atrial fibrillation, specifically her sister, which is concerning for her. - Recently noted increased fatigue, with her blood tests from March showing hypercholesterolemia, otherwise normal. EKG done at that time WNL as well. - Only takes probiotics as supplements and maintains a healthy diet. Physical Exam General: Well developed, well nourished, in no acute distress. Appears stated age. Head: Normocephalic, atraumatic. Lungs: Clear to auscultation bilaterally. No rales, rhonchi or wheeze noted. Good air flow in all parks. Heart: Regular rate and rhythm. No murmurs, click, rubs or gallops are noted. H Pulses: Peripheral pulses are equal and palpable bilaterally. Extremities: No clubbing, cyanosis nor edema is noted. Results - Labs: Previous labs indicated elevated cholesterol. - Tests: Previous EKG was reportedly normal, but specific notes couldn't be retrieved during the visit. Discussion Notes I discussed with the patient the concerns surrounding her increased heart rate with physical activity and the context of her sister's atrial fibrillation. We agreed to proceed with additional labs, including a complete blood count and thyroid function tests, alongside checking B12 levels to assess any underlying causes for her symptoms. We also discussed the use of a Holter monitor to capture her heart rhythm over 72 hours. She was advised to continue her usual activities during the Holter monitoring to provide accurate data. . We prioritized following up on the results of both the blood work and monitoring to devise an appropriate management plan. Additionally, I assured her that any significant findings in the lab tests would be communicated promptly. Assessment and Plan 1. Elevated Heart Rate: The patient exhibits elevated heart rate during exertion. We will utilize a Holter monitor over 72 hours to detect any arrhythmias, completing this alongside lab tests focusing on thyroid function and vitamin B12 levels. Continued activity during monitoring is advised to ensure comprehensive data. 2. Hypercholesterolemia: Previous labs indicated elevated cholesterol. Current evaluation focuses on cardiac concerns related to heart rate, with cholesterol management to follow upon evaluation of more immediate issues and after Holter monitoring results. 3. Family History of Atrial Fibrillation: The sister's atrial fibrillation history necessitates risk assessment via Holter monitoring and labs, aiding informed future management decisions if further cardiac evaluations become essential. Patient Instructions - Undergo Holter monitoring as discussed, while maintaining normal daily activities to ensure a full recording. - Complete the recommended blood work, including tests for other potential contributory factors. - Expect contact from cardiology for setting up Holter monitoring. - Monitor symptoms, particularly during physical activity, and report any significant changes. - Follow up for a detailed review of results and next steps. My office to coordinate f/u once Holter results available. Consent Patient was informed and verbally consented to the use of an ambient scribe for clinic note documentation during this visit. Total time spent caring for the patient today was 30 minutes. This includes time spent before the visit reviewing the chart, time spent during the visit, and time spent after the visit on documentation, reviewing laboratory results, diagnostic imaging, medications, performing a medically necessary evaluation, counseling on diagnoses, care coordination, ordering appropriate tests, ordering appropriate medications, review of tests performed by other providers, reporting test results with the patient, communication with other healthcare providers. 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 Hx of varicose veins Osteopenia Surgical History (Updated 01/11/25 @ 07:28 [facility] H/O varicose vein stripping History of colonoscopy (~2021) Hx of cervical biopsy Family History (Updated 01/11/25 @ 11:22 by Terrance Busch MA) Father Family history of Alzheimer's disease History of dementia Mother Family history of Alzheimer's disease History of dementia Paternal Grandmother Family history of Alzheimer's disease History of dementia Paternal Grandfather Family history of Alzheimer's disease History of dementia Brother History of COPD Sister Afib Social History Housing: Apartment Alcohol intake: current Alcohol intake frequency: a few times a month Patient Tobacco Use Status: Never used Tobacco e-Cigarette/Vaping Use: Never Used service: No Current occupational status: retired Sexual orientation: Straight/Heterosexual Gender identity: Female Cognitive needs: No Hearing needs: No Vision needs: Yes Female Reproductive History Menstrual Age of Menarche: 15 Questionnaire PHQ-9 Over the last 2 weeks, how often have you been bothered by any of the following problems? 1. Little interest or pleasure in doing things: not at all 2. Feeling down, depressed, or hopeless: not at all 3. Trouble falling or staying asleep, or sleeping too much: not at all 4. Feeling tired or having little energy: not at all 5. Poor appetite or overeating: not at all 6. Feeling bad about yourself - or that you are a failure or have let yourself or your family down: not at all 7. Trouble concentrating on things, such as reading the newspaper or watching television: not at all 8. Moving or speaking so slowly that other people could have noticed. Or the opposite - being so fidgety or restless that you have been moving around a lot more than usual: not at all 9. Thoughts that you would be better off or of hurting yourself in some way: not at all Total score: 0 Depression Screening Interpretation: Negative Depression Screening Done: Yes 56274 - PHQ-9 Billing: Yes Source: Developed by Drs. Buddy Saunders, Chey Mejias, Cal Nam and colleagues, with an educational katy from [employer]. Thrive Questionnaire Date Thrive assessed: 01/11/25 I am a: Patient What is your living situation today?: I have a steady place to live Within the past 12 months, did the food you bought not last and you didn't have the money to get more?: Never true Within the past 12 months, did you worry whether your food would run out before you got money to buy more?: Never true Do you have trouble paying for medicines?: No Do you have trouble getting transportation to medical appointments?: No Do you have trouble paying your heating and electricity bill?: No Do you have trouble taking care of your child, family member or friend?: No Do you have trouble with day-to-day activities such as bathing, preparing meals, shopping, managing finances, etc.?: No Are you currently unemployed and looking for a job?: No Are you interested in more education?: No Please select the resources that you would like help with: None Currently or been in a relationship where the following occur: No concerns reported THRIVE Score: 0 AUDIT C Alcohol Use Questionnaire (AUDIT-C) 1. How often do you have a drink containing alcohol?: Monthly or less 2. How many drinks containing alcohol do you have on a typical day when you are drinking?: 1 or 2 3. How often do you have six or more drinks on one occasion?: Never Total Score: 1 Score Reviewed/Action Taken: Yes CHAD-7 AMB Questionnaire CHAD-7 Date CHAD - 7 assessed: 01/11/25 Feeling nervous, anxious, or on edge: 0 = Not at all Not being able to stop or control worryin = Not at all Worrying too much about different things: 0 = Not at all Trouble relaxin = Not at all Being so restless that it is hard to sit still: 0 = Not at all Becoming easily annoyed or irritable: 0 = Not at all Feeling afraid as if something awful might happen: 0 = Not at all Total CHAD-7 score (0-4 normal; 5-9 mild; 10-14 moderate; 15-21 severe): 0 Source: Developed by Drs. Buddy Saunders, Chey Mejias, Cal Nam and colleagues, with an educational katy from [employer]. CHAD-7 Assessment Billing CHAD-7 Assessment Tool: CHAD-7 Assessment 28758 Physical exam (Primary Care) Vital Signs: Last Vital Signs Temp 97.2 F 01/11/25 11:24 Pulse 68 01/11/25 11:24 Resp 12 01/11/25 11:24 BP 102/66 01/11/25 11:24 Pulse Ox 96 01/11/25 11:24 Oxygen Delivery Method Room Air 01/11/25 11:24 BMI result Body Mass Index 27.6 Tobacco/Smoking Status: Tobacco use Status Tobacco use date assessed 01/11/25 01/11/25 11:20 Patient Tobacco Use Status Never used Tobacco 01/11/25 11:20 e-Cigarette/Vaping Use Never Used 01/11/25 11:20 PHQ-9: PHQ-9 Score PHQ-9: Total score 0 01/11/25 11:20 Depression Screening Interpretation: Negative Thrive Assessment: Date of Thrive Assessment Date Thrive assessed 01/11/25 01/11/25 11:20 Currently or been in a relationship where the following occur: No concerns reported Coding Level of Care Code Est Pt Level 4 (89348) Complex EM visit Add On G2211 Diagnoses Tachycardia R00.0 Family history of atrial fibrillation Z82.49 Additional Codes CHAD-7 Assessment Billing - CHAD-7 Assessment Tool: CHAD-7 Assessment 38485 ([id number]) PHQ-9 - 60165 - PHQ-9 Billing: Yes ([id number]) Assessment & Plan Assessment & Plan (1) Tachycardia: Code(s): R00.0 - Tachycardia, unspecified Category: Medical (2) Family history of atrial fibrillation: Code(s): Z82.49 - Family history of ischemic heart disease and other diseases of the circulatory system Category: Medical Plan . Orders: Orders Magnesium Today R00.0 - Tachycardia, unspecified ECG 3 day holter monitor Today R00.0 - Tachycardia, unspecified, Z82.49 - Family history of ischemic heart disease and other diseases of the circulatory system Complete Blood Count no Diff Today R00.0 - Tachycardia, unspecified Phosphorus Today R00.0 - Tachycardia, unspecified Vitamin B12 and Folate Today R00.0 - Tachycardia, unspecified TSH reflex Free T4 Today R00.0 - Tachycardia, unspecified
[2025-01-11 11:24] VITALS: BP 102/66; PULSE 68; RESP 12; TEMP 36.2; O2SAT 96; BMI 27.6
== END 2025-01-11 11:48 | disposition home or self-care (01) ==
LOC: HO.HMCFM 11:17
PROVIDERS: PCP Nurse Practitioner Family; Visit Provider Nurse Practitioner Family
DX: R00.0 Tachycardia, unspecified (principal); Z82.49 Family history of ischemic heart disease and other diseases of the circulatory system

== ENCOUNTER 2025-01-11 11:44 | Outpatient (REF) | payer MEDICARE, SELFPAY ==
[2025-01-11 14:25] LABS: Hematocrit 40.7 % (37.0-47.0); Hemoglobin 13.9 g/dl (12.0-16.0); Mean Corpuscular HGB Conc 34.2 g/dl (31.0-35.0); Mean Corpuscular Hemoglobin 29.5 pg (27.0-33.0); Mean Corpuscular Volume 86.4 fL (80.0-98.0); Mean Platelet Volume 10.9 fL (9.4-12.3); Platelet Count 270 X10*3/uL (160-400); Red Blood Count 4.71 X10*6/uL (4.20-5.50); Red Cell Distribution Width 13.2 % (11.0-16.0); White Blood Count 5.7 X10*3/uL (4.8-10.8)
[2025-01-11 14:46] LABS: Magnesium 2.2 mg/dL (1.6-2.6); Phosphorus 3.5 mg/dL (2.7-4.5)
[2025-01-11 15:03] LABS: TSH reflex Free T4 1.61 uIU/mL (0.32-4.0)
[2025-01-11 15:15] LABS: Folate 7.4 ng/mL (> or = 4.0); Vitamin B12 306 pg/mL (200-900)
== END 2025-01-11 11:45 | disposition home or self-care (01) ==
LOC: HO.WFDLDS 11:44
PROVIDERS: Visit Provider Nurse Practitioner Family
DX: R00.0 Tachycardia, unspecified (principal); Z82.49 Family history of ischemic heart disease and other diseases of the circulatory system
CPT/HCPCS: 36415; 82607; 82746; 83735; 84100; 84443; 85027; 96127; 99212

== ENCOUNTER → 2025-01-24 10:58 | Outpatient (REF) | payer MEDICARE, SELFPAY | LOC: HO.CARD 10:58 | PROVIDERS: PCP Nurse Practitioner Family; Visit Provider Nurse Practitioner Family | DX: R00.0 Tachycardia, unspecified (principal); R00.2 Palpitations; Z82.49 Family history of ischemic heart disease and other diseases of the circulatory system | CPT/HCPCS: 93242 ==

== ENCOUNTER → 2025-01-24 11:00 | Outpatient (BNV) | payer MEDICARE, SELFPAY | PROVIDERS: PCP Nurse Practitioner Family; Visit Provider Internal Medicine Cardiovascular Disease | DX: I47.10 Supraventricular tachycardia, unspecified (principal); I49.1 Atrial premature depolarization | CPT/HCPCS: 93244 ==

== ENCOUNTER 2025-02-04 09:38 | Outpatient (AMB) | payer MEDICARE, SELFPAY ==
--- NOTE | 2025-02-04 07:30 | A.OFFPC_ITS ---
Intake Visit Reasons: review holter results Intake Note: telehealth to review holter results Chaplain Resident Required: No Allergies Seasonal Allergies Allergy (Intermediate, Verified 02/04/25 09:36) Itchy Eyes Tobacco use date assessed: 01/11/25 Fall risk assessment: No Falls in past year Last assessed Fall Risk: 02/04/25 Dental Screening Dental Screen Date: 01/11/25 HPI HPI Comments History of Present Illness Details 74-year-old female with chronic pelvic p ain, ascus with negative high- risk HPV, herpes, BPPV, osteopenia, high risk of cervical cancer ADRI daughter, obesity, varicose veins, 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 - Approximately one month ago, she began noticing increased heart rate with exertion, marked by her activity tracker watch. - When climbing stairs, her heart rate i ncreased from a resting rate of 67 bpm to 145 bpm. - During a hip hop aerobics class, her h eart rate occasionally surpassed 100 bpm, causing concern. - She experiences heart palpitations but denies chest pain, nausea, or any back pain. - The patient has a family history of at rial fibrillation, specifically her sister, which is concerning for her. - Recently noted increased fatigue, with her blood tests from March showing hypercholesterolemia, otherwise normal. EKG done at that time WNL as well Holter Results 1. Patient was monitored for total perio d of 3 days and 2 hours 2. Baseline was normal sinus rhythm with average heart rate of 73 beats per min [place] 3. Occasional PACs noted with 11 short r uns of SVT, longest lasting 16 beats and the fastest 163 beats per minute 4. No significant pauses noted 5. No patient reported events Recent aerobics hip hop on Friday evenings indicated no significant issues except regular checks during weightlifting classes where heart rate remains stable. - Holter monitor showed SVT episodes at various times, constituting 4.85% of total heartbeats. Peak heart rate reached 163 BPM, with observed bradycardia less than 60 BPM 13.85% of the time. - Occasional PACs noted. No atrial fibri llation detected; family history significant for atrial fibrillation. Plan Refer to Cards for eval and tx. I attest that this telehealth visit was conducted by video, and accurate documentation has been ensured. The patient has been explained that this is an interactive (audio/video) telehealth encounter and what that consists of. The patient understands and wishes to proceed. [employer] platform was used. Total time spent caring for the patient today was 15 minutes. This includes time spent before the visit reviewing the chart, time spent during the visit, and time spent after the visit on documentation, reviewing laboratory results, diagnostic imaging, medications, performing a medically necessary evaluation, counseling on diagnoses, care coordination, ordering appropriate tests, ordering appropriate medications, review of tests performed by other providers, reporting test results with the patient, communication with other healthcare providers. 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 Hx of varicose veins Osteopenia Surgical History (Updated 01/11/25 @ 07:28 by PERLITA Silva) H/O varicose vein stripping History of colonoscopy (~2021) Hx of cervical biopsy Family History (Updated 01/11/25 @ 11:22 by Terrance Busch MA) Father Family history of Alzheimer's disease History of dementia Mother Family history of Alzheimer's disease History of dementia Paternal Grandmother Family history of Alzheimer's disease History of dementia Paternal Grandfather Family history of Alzheimer's disease History of dementia Brother History of COPD Sister Afib Social History Housing: Apartment Alcohol intake: current Alcohol intake frequency: a few times a month Patient Tobacco Use Status: Never used Tobacco e-Cigarette/Vaping Use: Never Used service: No Current occupational status: retired Sexual orientation: Straight/Heterosexual Gender identity: Female Cognitive needs: No Hearing needs: No Vision needs: Yes Female Reproductive History Menstrual Age of Menarche: 15 Questionnaire Thrive Questionnaire Date Thrive assessed: 01/11/25 I am a: Patient What is your living situation today?: I have a steady place to live Within the past 12 months, did the food you bought not last and you didn't have the money to get more?: Never true Within the past 12 months, did you worry whether your food would run out before you got money to buy more?: Never true Do you have trouble paying for medicines?: No Do you have trouble getting transportation to medical appointments?: No Do you have trouble paying your heating and electricity bill?: No Do you have trouble taking care of your child, family member or friend?: No Do you have trouble with day-to-day activities such as bathing, preparing meals, shopping, managing finances, etc.?: No Are you currently unemployed and looking for a job?: No Are you interested in more education?: No Please select the resources that you would like help with: None Currently or been in a relationship where the following occur: No concerns reported THRIVE Score: 0 CHAD-7 AMB Questionnaire CHAD-7 Date CHAD - 7 assessed: 01/11/25 Source: Developed by Drs. Buddy Saunders, Chey Mejias, Cal Nam and colleagues, with an educational katy from [employer]. Physical exam (Primary Care) Tobacco/Smoking Status: Tobacco use Status Tobacco use date assessed 01/11/25 02/04/25 07:32 Patient Tobacco Use Status Never used Tobacco 02/04/25 07:32 e-Cigarette/Vaping Use Never Used 02/04/25 07:32 Thrive Assessment: Date of Thrive Assessment Date Thrive assessed 01/11/25 02/04/25 07:32 Currently or been in a relationship where the following occur: No concerns reported Telehealth Telehealth Telehealth Platform: [facility] Location of provider rendering services: practice address Location of patient: address on file Patient Identification confirmed using: Name, : Yes Telehealth method: voice only Patient verbally consented to treatment: Yes Patient verbally consented to billing insurance company: Yes Patient informed of any privacy concerns related to visit: Yes Minutes spent on Phone/Video with Pt.: 8 Coding Level of Care Code Tele Est Pt Level 3 (68540) Complex EM visit Add On G2211 Diagnoses Palpitations R00.2 Family history of atrial fibrillation Z82.49 Assessment & Plan Assessment & Plan (1) Palpitations: Comment: Holter 01/2025 Holter Results 1. Patient was monitored for total period of 3 days and 2 hours 2. Baseline was normal sinus rhythm with average heart rate of 73 beats per minute 3. Occasional PACs noted with 11 short runs of SVT, longest lasting 16 beats and the fastest 163 beats per minute 4. No significant pauses noted 5. No patient reported events Code(s): R00.2 - Palpitations Category: Medical (2) Family history of atrial fibrillation: Code(s): Z82.49 - Family history of ischemic heart disease and other diseases of the circulatory system Category: Medical Plan . Orders: Referrals Cardiology Referral R00.2 - Palpitations
== END 2025-02-04 10:07 | disposition home or self-care (01) ==
LOC: HO.HMCFM 09:38
PROVIDERS: PCP Nurse Practitioner Family; Visit Provider Nurse Practitioner Family
DX: R00.2 Palpitations (principal); Z82.49 Family history of ischemic heart disease and other diseases of the circulatory system

== ENCOUNTER → 2025-02-04 09:38 | Outpatient (BNVA) | payer MEDICARE, SELFPAY | PROVIDERS: PCP Nurse Practitioner Family; Visit Provider Nurse Practitioner Family | DX: Z13.89 Encounter for screening for other disorder (principal) ==

== ENCOUNTER 2025-04-14 10:43 | Outpatient (AMB) | payer MEDICARE, SELFPAY ==
--- NOTE | 2025-04-14 10:45 | MHC.OFFVIS ---
Vital Signs 04/14/25 10:53 Height 5 ft 8 in Weight 173 lb BMI 26.3 BP 122/74 Intake Visit Reasons: [employer] annual exam Allergies Seasonal Allergies Allergy (Intermediate, Verified 04/14/25 10:51) Itchy Eyes HPI Comments Details: Presenting for annual exam. No complaints. 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 Hx of varicose veins Hx of Guillain-[place] syndrome Surgical History History of colonoscopy (~2021) Hx of cervical biopsy H/O varicose vein stripping Family History Father Family history of Alzheimer's disease History of dementia Mother Family history of Alzheimer's disease History of dementia Paternal Grandmother Family history of Alzheimer's disease History of dementia Paternal Grandfather Family history of Alzheimer's disease History of dementia Brother History of COPD Sister Afib Social History Housing: Apartment Alcohol intake: current Alcohol intake frequency: a few times a month Patient Tobacco Use Status: Never used Tobacco e-Cigarette/Vaping Use: Never Used service: No Current occupational status: retired Sexual orientation: Straight/Heterosexual Gender identity: Female Cognitive needs: No Hearing needs: No Vision needs: Yes Female Reproductive History Menstrual Age of Menarche: 15 control method: none Total pregnancies: 4 Full term: 3 Ab induced: 1 Date of last pap smear: 03/24/24 (negative pap smear, negative hpv ) History of abnormal pap smear: Yes (ASCUS) Date of Mammogram: 07/29/24 (bi rad 2) Date of last Bone Density Screenin06/25/23 Review of Systems Const All systems reviewed & are unremarkable except as noted in HPI and below Card Reports as per HPI Resp Reports as per HPI GI Reports as per HPI and Reports no additional complaints Reports as per HPI Physical Exam Vital Signs: Last Vital Signs BP 122/74 04/14/25 10:53 BMI result Body Mass Index 26.3 Const General: cooperative, healthy appearing and comfortable Chest Chest palpation & inspection: normal inspection of the chest and normal palpation of entire chest wall Breast/axilla inspection: normal inspection of the breasts and normal inspection of the axillae Breast/axilla palpation: normal palpation of the breasts, normal palpation of the axillae and no axillary lymphadenopathy Resp Effort & Inspection: normal respiratory effort Auscultation: clear to auscultation bilaterally Percussion: percussion normal Cardio Palpation: normal PMI Rate: regular rate Rhythm: regular rhythm Heart sounds: no murmurs and no rubs Peripheral pulses: Peripheral pulses 2+ throughout GI Inspection: Yes normal to inspection Palpation (GI): Soft to palpation, nontender, no guarding, not rigid and No hepatosplenomegaly present Percussion: Yes normal to percussion Auscultation: normal bowel sounds Rectal Exam - Female: deferred General: Yes bladder normal to palpation External Female Exam: No lesion Speculum Exam - Vagina: normal appearance of the vagina, normal palpation, normal vaginal discharge and not erythematous Speculum Exam - Cervix: normal appearance of the cervix and normal palpation Bimanual exam- vagina & uterus: normal bimanual exam, normal palpation, uterine size normal, bladder normal to palpation, consistency normal and normal palpation Bimanual Exam- Adnexa, other: normal adnexae, no masses and no tenderness Assessment & Plan Assessment & Plan (1) Well woman exam with routine gynecological exam: Comment: BOBBY 1 in 02/08 followed by negative co testing in and Code(s): Z01.419 - Encounter for gynecological examination (general) (routine) without abnormal findings Category: Medical Plan: Cotesting done. Instructions given the patient to schedule next screening Mammogram in 08/13. Counseled the patient about the recommended dietary allowance of 1000 mg of Calcium & 600 IU of vitamin D. DEXA scan ordered in 07/14, instructions given the patient to schedule a 2 week follow-up appointment after DEXA scan Will refer to GI for screening colonoscopy The patient was instructed to perform monthly self-breast exams and to schedule an annual exam in a year; All questions answered and the patient verbalized understanding. Instructed the patient to schedule annual exam in a year Orders: Orders XR DEXA axial skeleton Today Z78.0 - Asymptomatic menopausal state Referrals Gastroenterology Referral Z12.11 - Encounter for screening for malignant neoplasm of colon Coding Level of Care Code Est Pt Prev Care >65y(16197) Diagnoses Well woman exam with routine gynecological exam Z01.419
[2025-04-14 10:53] VITALS: BP 122/74; BMI 26.3
== END 2025-04-14 11:11 | disposition home or self-care (01) ==
LOC: HO.HWS 10:43
PROVIDERS: PCP Hospitalist; Visit Provider Obstetrics & Gynecology
DX: Z01.419 Encounter for gynecological examination (general) (routine) without abnormal findings (principal)
CPT/HCPCS: G0101; Q0091

== ENCOUNTER 2025-04-14 10:43 | Outpatient (REF) | payer MEDICARE, SELFPAY ==
[2025-04-19 14:11] LABS: HPV Genotype 16 Negative (Negative); HPV Genotype 18 Negative (Negative); HPV High Risk Negative (Negative)
== END 2025-04-14 10:44 | disposition home or self-care (01) ==
LOC: HO.LNP 10:43
PROVIDERS: PCP Hospitalist; Visit Provider Obstetrics & Gynecology
DX: Z01.419 Encounter for gynecological examination (general) (routine) without abnormal findings (principal); Z11.51 Encounter for screening for human papillomavirus (HPV); Z78.0 Asymptomatic menopausal state
CPT/HCPCS: 87626; 88175; G0101; Q0091

== ENCOUNTER 2025-05-03 07:50 | Outpatient (AMB) | payer MEDICARE, SELFPAY ==
--- NOTE | 2025-05-03 07:52 | A.OFFVIS_ITS ---
Intake Vital Signs 05/03/25 08:03 Height 5 ft 8 in Weight 171 lb 4 oz BMI 26.0 BP 102/69 Blood Pressure Location Lt brachial Position Sitting Respiration 12 Pulse 58 Pulse Source Pulse Oximeter Temp 97.2 F Temp Source Oral Pulse Oximetry (%) 97 Oxygen Delivery Method Room Air Intake Visit Reasons: AMV Intake Note: AWV Lime Supervisor Required: No Allergies Seasonal Allergies Allergy (Intermediate, Verified 05/03/25 08:19) Itchy Eyes Medication List - Last Reconciled 05/03/25 by Joanna Pelayo, [facility]- azelastine 0.05% 1 drp ophthalmic (eye) BID 30 days cetirizine (Zyrtec) 10 mg PO DAILY fluticasone propionate 50 mcg/actuation (Flonase Allergy Relief) 1 spray intranasal BID valacyclovir 500 mg PO BID PRN 3 days Do you need a note to return to daycare/school/sports/work: No HPI HPI Comments History of Present Illness Details Here today for AWV. The Medicare Annual Wellness Visit (AWV) is a yearly appointment with a health professional to identify health risks and help reduce them and to create or update a personalized prevention plan. During a Medicare AWV, health professionals should also review any current opioid prescriptions, detect any cognitive impairment, and establish or update medical and family history. 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 Colon: cologaurd negative, referred for repeat colon appt upcoming Mammo 07/2024 DEXA 06/2023, repeat 2024 PAP Last Pap/HPV 03/2025 wnl Vaccines: declined Shingles and Tdap, otherwise UTD AAA screen: NA EKG: sinus malik otherwise WNL Elem of Care: [employer] GI appt Fall 2024 Optho Derm Cards first appt May Visual Acuity: wears glasses, last in office exam [place] about 4 months ago, No changes Hearing Screening: No issues ACP: HCP, JOE completed and scanned into chart Dietary/Nutrition/Exercise Edu provided: Y During the course of the visit the patient was educated and counseled about appropriate screening and preventative services. Patient instructions were provided to the patient in written or electronic format. I have reviewed and verified the above information. History of Present Illness - The patient is a 74-year-old female pr esenting with an Annual Medicare wellness visit. - Reports seasonal allergic rhinitis; us es Zyrtec and Flonase. - Occasional herpes simplex outbreaks; u ses Valacyclovir as needed. - Persistent varicose veins with left le g discomfort; would like to see Vascular at [facility] [place] - EKG: Sinus bradycardia. - Plans cardiology follow-up due to prio r Holter monitor findings. - Cognitive function assessed; normal. Social History - Has a boyfriend - Actively involved in caring for scott mas, Dtr has 3 children youngest 8 weeks old - No food insecurity reported. - Engages in regular physical activity r elated to home care and childcare tasks. Health Maintenance - Vision screening completed; no changes in vision. - Scheduled consultation for repeat colo noscopy due to backlog. - Bone density and mammogram appointment s set for July. - Advanced care planning completed; heal th care proxy on file. - EKG within normal limits. - A1c at 5.6%, indicating good glycemic control. Review of Systems - General: Denies dizziness, falls. - Cardiovascular: Denies swelling; repor ts end-of-day leg discomfort due to varicose veins. - Respiratory: Reports nasal congestion related to allergies. - Neurological: Denies cognitive difficu lties; tested well in cognitive screen. - Dermatological: Reports no recent skin issues. - Musculoskeletal: Denies joint pain, no rmal activity level. - Gastrointestinal: Reports normal bowel and bladder function. Physical Exam General: Well developed, well nourished, in no acute distress. Appears stated age. Head: Normocephalic, atraumatic. Eyes: Pupils are equal, round and reactive to light and accommodation. Conjunctivae are clear. Vision grossly normal. Vision screen performed today Ears: TMs clear AU, EACS WNL. No problems or concerns with hearing. Nose: Patent, without discharge. Occasional runny nose associated with allergies. Neck: Supple, no adenopathy or thyromegaly. No pain or tenderness upon examination. Breast: Edu on SBE Lungs: Clear to auscultation bilaterally. No rales, rhonchi or wheeze noted. Good air flow in all parks. Heart: Regular rate and rhythm. No murmurs, click, rubs or gallops are noted. EKG performed today shows sinus bradycardia, otherwise within normal limits. Abdomen: Bowel sounds present in all quadrants. The abdomen is soft, nontender, with no masses or organomegaly noted. No hernias are noted. : Deferred. Reviewed recommendations for routine [employer]ER. Pulses: Peripheral pulses are equal and palpable bilaterally. Extremities: No clubbing, cyanosis nor edema is noted. Patient reports a bothersome vein in the left leg, referral for vascular consultation made. Neurologic: Gait and station normal. Cranial Nerves 2-12 intact. Motor strength grossly symmetrical and intact. No sensory loss. Balance normal. Cognitive screening performed; patient scored perfectly. Skin: No rashes, ulcers, or lesions noted. Turgor is good. Skin color is good. Hair and nails are without abnormalities. Psych: Normal eye contact, affect and mood appropriate, and normal interactions. Patient is alert and appropriate to context. No problems with anxiety or depression reported. Results - Labs: Hemoglobin A1c at 5.6%. - Tests: EKG shows sinus bradycardia. Discussion Notes We discussed her current wellness management, investigating further surgical treatment for varicose veins, and follow-ups on prior cardiology issues like the Holter monitor. I provided a referral for vascular evaluation at the patient's preferred location. We confirmed the continuation of allergy medications and completed appropriate referrals for grievance screenings and confirmations of health care proxy documentation. Several upcoming appointments were verified and planned. I also advised on conducting lab tests immediately due to fasting. Assessment and Plan 1. Seasonal Allergic Rhinitis - Continue Zyrtec, Flonase, eye drops. 2. Herpes Simplex Virus - PRN Valacyclovir as planned. 3. Sinus Bradycardia - EKG noted; follow-up with vessel manager . 4. Varicose Veins - Referral for vascular consultation. 5. Cognitive Function - Normal screening, no concerns. 6. Labs today. Patient Instructions - Continue allergy medications as prescr ibed. - Attend all scheduled consultations and screenings. - Follow up with vessel manager as planned . - Await call to schedule vascular consul tation. - Monitor symptoms and seek medical advi ce if acute issues arise. - RTO 1 year sAWV sooner PRN Consent Patient was informed and verbally consented to the use of an ambient scribe for clinic note documentation during this visit. An additional 30 minutes was spent addressing the problem(s) noted at todays visit. This includes time spent before the visit reviewing the chart, time spent during the visit, and time spent after the visit on documentation reviewing laboratory results, diagnostic imaging, medications, performing a medically necessary evaluation, counseling on diagnoses, care coordination, ordering appropriate tests, ordering appropriate medications, review of tests performed by other providers, reporting test results with the patient, communication with other healthcare providers. 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 Hx of varicose veins Osteopenia Surgical History H/O varicose vein stripping History of colonoscopy (~2021) Hx of cervical biopsy Family History Father Family history of Alzheimer's disease History of dementia Mother Family history of Alzheimer's disease History of dementia Paternal Grandmother Family history of Alzheimer's disease History of dementia Paternal Grandfather Family history of Alzheimer's disease History of dementia Brother History of COPD Sister Afib Social History Housing: Apartment Alcohol intake: current Alcohol intake frequency: a few times a month Patient Tobacco Use Status: Never used Tobacco e-Cigarette/Vaping Use: Never Used service: No Current occupational status: retired Sexual orientation: Straight/Heterosexual Gender identity: Female Cognitive needs: No Hearing needs: No Vision needs: Yes Female Reproductive History Menstrual Age of Menarche: 15 Questionnaire Medicare Wellness Checkup What [age]?: [age] What gender do you identify with?: female During the past 4 weeks, how much have you been bothered by emotional problems such as feeling anxious, depressed, irritable, sad or downhearted, and blue?: not at all During the past 4 weeks, has your physical & emotional health limited your social activities with family, friends, neighbors, or groups?: not at all During the past 4 weeks, how much bodily pain have you generally had?: no pain During the past 4 weeks, was someone available to help you if you needed & wanted help?: yes, as much as I wanted During the past 4 weeks, what was the hardest physical activity you could do for at least 2 minutes?: very heavy Can you get to places out of walking distance without help? (For eg., can you travel alone on buses, taxis or drive your car?): Yes Can you go shopping for groceries or clothes without someone's help?: Yes Can you prepare your own meals?: Yes Can you do your housework without help?: Yes Because of any health problems, do you need the help of another person with your personal care needs such as eating, bathing, dressing or getting around the house?: Yes Can you handle your own money without help?: Yes During the past 4 weeks, how would you rate your health in general?: excellent During the past 4 weeks how have things been going for you?: very well; could hardly better Are you having difficulties driving your car?: no Do you always fasten your seat belt when you are in a car?: yes, usually During past 4 weeks, have you been bothered by the following: never: Falling or dizzy when standing up, Sexual problems?, Trouble eating well?, Teeth or denture problems?, Problems using the telephone? and Tiredness or fatigue? Have you fallen 2 or more times in the past year?: No Are you afraid of falling?: No Are you a smoker?: no During the past 4 weeks, how many drinks of wine, beer, or other alcoholic beverages did you have?: 1 drink or less per week Do you exercise for about 20 minutes 3 or more times a week?: yes, all the time Have you been given information to help with the following?: no: Hazards in your house that might hurt you? and no: Keeping track of your medications? How often do you have trouble taking medicines the way you have been told to take them?: I always take medicine as prescribed How confident are you that you can control & manage most of your health problems?: very confident What is your race?: White Activity of Daily Living Bathing - sponge bath, tub bath or shower: receives no assistance (gets in/out by self, if usual bathing means Dressing - getting clothes from closets & drawers, including inner/outer garments & fasteners.: gets clothes & gets completely dressed without help Toileting - going to the 'toilet room' for urine/bowel elimination & cleaning self/arranging clothes: goes to toilet room, cleans self, arranges clothes without help Transfer: moves in & out of bed and chair without help (may use support object) Continence: controls urination/bowel movements completely by self Feeding: feeds self without help Total Score: 0 Information obtained from: patient Using telephone: independent Traveling: independent Shopping: independent Preparing meals: independent Housework: independent Taking medicine: independent Managing money: independent PHQ-9 Over the last 2 weeks, how often have you been bothered by any of the following problems? 1. Little interest or pleasure in doing things: not at all 2. Feeling down, depressed, or hopeless: not at all 3. Trouble falling or staying asleep, or sleeping too much: not at all 4. Feeling tired or having little energy: not at all 5. Poor appetite or overeating: not at all 6. Feeling bad about yourself - or that you are a failure or have let yourself or your family down: not at all 7. Trouble concentrating on things, such as reading the newspaper or watching television: not at all 8. Moving or speaking so slowly that other people could have noticed. Or the opposite - being so fidgety or restless that you have been moving around a lot more than usual: not at all 9. Thoughts that you would be better off or of hurting yourself in some way: not at all Total score: 0 Depression Screening Interpretation: Negative Depression Screening Done: Yes 83392 - PHQ-9 Billing: Yes Source: Developed by Drs. Buddy Saunders, Chey Mejias, Cal Nam and colleagues, with an educational katy from [employer]. Physical Exam Vital Signs: Last Vital Signs Temp 97.2 F 05/03/25 08:03 Pulse 58 05/03/25 08:03 Resp 12 05/03/25 08:03 BP 102/69 05/03/25 08:03 Pulse Ox 97 05/03/25 08:03 Oxygen Delivery Method Room Air 05/03/25 08:03 BMI result Body Mass Index 26.0 Office Procedures EKG 98026-[id number], Complete Vision Screening Right Eye: 20/20 Left Eye: 20/20 Bilateral: 20/20 Color: Pass Corrected: Pass (wearing glasses) 71912 - Vision Screening Results AMB Hemoglobin A1c AMB Hemoglobin A1c 5.6 % Last Edit by Terrance Busch MA on 05/03/25 08:17 Results Reviewed Results Reviewed: Laboratory Last Values Hgb A1c (Clinic) 5.6 % (4.0-6.0) 05/03/25 08:07 Assessment & Plan Assessment & Plan (1) Encounter for annual wellness visit (AWV) in Medicare patient: Onset Date: ~05/03/25 Code(s): Z00.00 - Encounter for general adult medical examination without abnormal findings (2) Varicose veins of left lower leg: Code(s): I83.92 - Asymptomatic varicose veins of left lower extremity (3) Osteopenia: Code(s): M85.80 - Other specified disorders of bone density and structure, unspecified site Qualifiers: Osteopenia location: unspecified Qualified Code(s): M85.80 - Other specified disorders of bone density and structure, unspecified site (4) Seasonal allergies: Comment: resolved w/ Zyrtec daily along with azestyline eyedrops. Code(s): J30.2 - Other seasonal allergic rhinitis (5) Family history of atrial fibrillation: Code(s): Z82.49 - Family history of ischemic heart disease and other diseases of the circulatory system (6) Palpitations: Comment: Holter 01/2025 Holter Results 1. Patient was monitored for total period of 3 days and 2 hours 2. Baseline was normal sinus rhythm with average heart rate of 73 beats per minute 3. Occasional PACs noted with 11 short runs of SVT, longest lasting 16 beats and the fastest 163 beats per minute 4. No significant pauses noted 5. No patient reported events Code(s): R00.2 - Palpitations (7) Hyperlipidemia: Code(s): E78.5 - Hyperlipidemia, unspecified Qualifiers: Hyperlipidemia type: mixed hyperlipidemia Qualified Code(s): E78.2 - Mixed hyperlipidemia (8) High risk for cervical cancer: Comment: ADRI daughter Code(s): Z91.89 - Other specified personal risk factors, not elsewhere classified (9) Herpes: Code(s): B00.9 - Herpesviral infection, unspecified Plan . Orders: Orders AMB Hemoglobin A1c Today Z13.9 - Encounter for screening, unspecified Referrals Vascular Surgery Referral I83.92 - Asymptomatic varicose veins of left lower extremity Medications: Refilled azelastine 0.05% bilat eyes 1 drp ophthalmic (eye) BID 6 mL 0RF 30 days cetirizine (Zyrtec) 10 mg PO DAILY 90 tabs 0RF Patient Instructions: Health screenings for women You should visit your health care provider from time to time, even if you are healthy. The purpose of these visits is to: Screen for medical issues Assess your risk for future medical problems Encourage a healthy lifestyle Update vaccinations and other preventive care services Help you get to know your provider in case of an illness Information Even if you feel fine, you should still see your provider for regular checkups. These visits can help you avoid problems in the future. For example, the only way to find out if you have high blood pressure is to have it checked regularly. High blood sugar and high cholesterol levels also may not have any symptoms in the early stages. A simple blood test can check for these conditions. There are specific times when you should see your provider or receive specific health screenings. The [place] Preventive Services Task Force publishes a list of recommended screenings. Below are screening guidelines for women ages 18 to 39. BLOOD PRESSURE SCREENING Your blood pressure should be checked at least once every 3 to 5 years if: Your blood pressure is in the normal range (top number less than 120 mm Hg and bottom number less than 80 mm Hg) You don't have risk factors for high blood pressure Ask your provider if you need your blood pressure checked more often if: The top number is 120 to 129 mm Hg or the bottom number is 70 to 79 mm Hg You have diabetes, heart disease, kidney problems, are overweight, or have certain other health conditions You have a first-degree relative with high blood pressure You are Black You had high blood pressure during a If the top number is 130 mm Hg or greater or the bottom number is 80 mm Hg or greater, this is considered stage 1 hypertension. Schedule an appointment with your provider to learn how you can reduce your blood pressure. Watch for blood pressure screenings in your area. Ask your provider if you can stop in to have your blood pressure checked. BREAST CANCER SCREENING Experts do not agree about the benefits of breast self-exams in finding breast cancer or saving lives. Talk to your provider about what is best for you. A screening mammogram is not recommended for most women under age 40. Your provider may discuss and recommend mammograms, MRI scans, or ultrasounds if you have an increased risk for breast cancer, such as: A mother or sister who had breast cancer at a young age (most often starting screening earlier than the age the close relative was diagnosed) You carry a high-risk genetic marker CERVICAL CANCER SCREENING Cervical cancer screening should start at age 21 years unless your provider advises otherwise. After the first test: Women ages 21 through 29 should have a Pap test every 3 years. Exoprts do not agree on whether HPV testing is recommended for this age group. Women ages 30 through 65 should be screened with either a Pap test every 3 years or the HPV test every 5 years or both tests every 5 years (called cotesting ). Women who have been treated for precancer (cervical dysplasia) should continue to have Pap tests for 20 years after treatment or until age 65, whichever is longer. If you have had your uterus and cervix removed (total hysterectomy), and you have not been diagnosed with cervical cancer or precancer (high grade cervical neoplasia), you do not need cervical cancer screening. CHOLESTEROL SCREENING Cholesterol screening should begin at: Age 45 for women with no known risk factors for coronary heart disease Age 20 for women with known risk factors for coronary heart disease Repeat cholesterol screening should take place: Every 5 years for women with normal cholesterol levels More often if changes occur in lifestyle (including weight gain and diet) More often if you have diabetes, heart disease, kidney problems, or certain other conditions DIABETES SCREENING You should be screened for diabetes starting at age 35 and then repeated every 3 years if you have no risk factors for diabetes. Screening may need to start earlier and be repeated more often if you have other risk factors for diabetes, such as: You have a first degree relative with diabetes. You are overweight or have obesity. You have high blood pressure, prediabetes, or a history of heart disease. Screening for diabetes should be done if you are planning to become and you are overweight and have other risk factors such as high blood pressure. DENTAL EXAM Go to the dentist once or twice every year for an exam and cleaning. Your dent ist will evaluate if you need more frequent visits. EYE EXAM Have an eye exam every 5 to 10 years before age 40. If you have vision problems, have an eye exam every 2 years or more often if recommended by your provider. You should have an eye exam that includes an examination of your retina (back of your eye) at least every year if you have diabetes. IMMUNIZATIONS Commonly needed vaccines include: Flu shot: get one every year. COVID-19 vaccine: ask your provider what is best for you. Tetanus-diphtheria and acellular pertussis (Tdap) vaccine: have one at or after age 19 as one of your tetanus-diphtheria vaccines if you did not receive it as an adolescent. Tetanus-diphtheria: have a booster (or Tdap) every 10 years. Varicella vaccine: receive 2 doses if you never had chickenpox or the varicella vaccine. Hepatitis B vaccine: receive 2, 3, or 4 doses, depending on your exact circumstances. Measles, mumps, and rubella (MMR) vaccine: receive 1 to 2 doses if you are not already immune to MMR. Your provider can tell you if you are immune. Ask your provider about the human papillomavirus (HPV) vaccine if: You have not received the HPV vaccine in the past You have not completed the full vaccine series (you should catch up on this shot) Ask your provider if you should receive other immunizations if you have certain health problems that increase your risk for some diseases such as pneumonia. INFECTIOUS DISEASE SCREENING Women who are sexually active should be screened for chlamydia and gonorrhea up until age 25. Women 25 years and older should be screened for chlamydia and gonorrhea if at high risk. Screening for hepatitis C: All adults ages 18 to 79 should get a one-time test for hepatitis C. people should be screened at every . Screening for human immunodeficiency virus (HIV): All people ages 15 to 65 should get a one-time test for HIV. Depending on your lifestyle and medical history, you may also need to be screened for infections such as syphilis and HIV, as well as other infections. PHYSICAL EXAM All adults should visit their provider from time to time, even if they are healthy. The purpose of these visits is to: Screen for disease Assess your risk of future medical problems Encourage a healthy lifestyle Update your vaccinations and other preventive care services Maintain a relationship with a provider in case of an illness Your height, weight, and BMI should be checked at every exam. During your exam, your provider may ask you about: Depression and anxiety Diet and exercise Alcohol and tobacco use Safety issues, such as using seat belts, smoke detectors, and intimate partner violence Your medicines and risk for interactions SKIN SELF-EXAM Your provider may check your skin for signs of skin cancer, especially if you're at high risk, such as if you: Have had skin cancer before Have close relatives with skin cancer Have a weakened immune system OTHER SCREENING Talk with your provider about colon cancer screening if you have a strong family history of colon cancer or polyps, or if you have had inflammatory bowel disease or polyps yourself. Routine bone density screening of women under 40 is not recommended. Quality Reporting (2019) Adult ([facility] 138/12/11/68) Smoking risk assessment performed?: Yes Patient Tobacco Use Status: Never used Tobacco Depression screening performed: Yes Screen Results: Yes Negative screen Recommended changes: lifestyle, dietary and physical activity Recommended changes not done: lifestyle, dietary, physical activity and EKG Patient refused: No Systolic BP not done?: Yes Diastolic BP not done?: Yes BMI screening not done: No BMI High - Follow Up: No High-plan Above normal medication not ordered: No Referral not ordered: No, No Above normal medication not ordered and No Referral not ordered BMI Low - Follow Up: No Low-plan, No Below normal medication not ordered and No Referral not ordered Controlling High BP: No Dialysis care, No Dialysis care assessment, No Dialysis access maint and No Dialysis education Sexual Activity Screening ([facility] 153) Sexually active?: Yes Immunizations ([facility] 147, 117) Annual Influenza Vaccine: No Flu Vaccine not done: medical reason Measles Antibody Test: No Mumps Antibody Test: No Rubella Antibody Test: No Varicella Antibody Test: No Anti Hepatitis A IgG Antigen test: No Anti Hepatitis B Virus Surface Ab test: No Diabetes ([facility] 131/134/142) Diabetes Urine Protein: No Dialysis care, No Dialysis care assessment, No Dialysis access maint and No Dialysis education Fall Risk Screening ([facility] 139) Last assessed Fall Risk: 05/03/25 Fall risk assessment: No Falls in past year Dementia Assessment ([facility] 149) Cognitive assessment recorded: Yes Assessment of cognition with standardized tool: Yes Depression/Bipolar (159/160/161/177) PHQ-9: Total score: 0 Ophthalmol:Cataracts Visual Acuity (133) Visual acuity exam performed: Yes (see results ) Coding Level of Care Code Medicare Subsequent (G0439) Est Pt Level 4 (90231) Diagnoses Encounter for annual wellness visit (AWV) in Medicare patient Z00.00 Varicose veins of left lower leg I83.92 Osteopenia, unspecified location M85.80 Osteopenia location: unspecified Seasonal allergies J30.2 Family history of atrial fibrillation Z82.49 Palpitations R00.2 Mixed hyperlipidemia E78.2 Hyperlipidemia type: mixed hyperlipidemia High risk for cervical cancer Z91.89 Herpes B00.9 CPT Codes Advance Care Planning - Time spent: 1-15 minutes, not on file ([id number]) Advance Care Planning - Advance Care Planning discussion: On file, no changes ([id number]) EKG - CPT: 34451-Vixkxpfrwijksalyu, Complete ([id number]) Vision Screening - Vision Screenin - Vision Screening ([id number]) Additional Codes PHQ-9 - 83260 - PHQ-9 Billing: Yes ([id number]) Advance Care Planning Advance Care Planning discussion: On file, no changes Date of discussion: 05/03/25 Who was present: self Forms completed: Health Care Proxy and MOLST Time spent: 1-15 minutes, not on file Actual minutes spent: 5 Did not discuss due to Cultural/Spiritual beliefs: No
[2025-05-03 08:03] VITALS: BP 102/69; PULSE 58; RESP 12; TEMP 36.2; O2SAT 97; BMI 26.0
== END 2025-05-03 08:43 | disposition home or self-care (01) ==
LOC: HO.HMCFM 07:51
PROVIDERS: PCP Nurse Practitioner Family; Visit Provider Nurse Practitioner Family
DX: Z00.00 Encounter for general adult medical examination without abnormal findings (principal); I83.92 Asymptomatic varicose veins of left lower extremity; M85.80 Other specified disorders of bone density and structure, unspecified site; J30.2 Other seasonal allergic rhinitis; Z82.49 Family history of ischemic heart disease and other diseases of the circulatory system; R00.2 Palpitations; E78.2 Mixed hyperlipidemia; Z91.89 Other specified personal risk factors, not elsewhere classified; B00.9 Herpesviral infection, unspecified; Z13.9 Encounter for screening, unspecified; Z01.00 Encounter for examination of eyes and vision without abnormal findings

== ENCOUNTER → 2025-05-03 07:50 | Outpatient (BNVA) | payer MEDICARE, SELFPAY | PROVIDERS: PCP Nurse Practitioner Family; Visit Provider Nurse Practitioner Family | DX: Z00.00 Encounter for general adult medical examination without abnormal findings (principal); Z13.1 Encounter for screening for diabetes mellitus; I83.92 Asymptomatic varicose veins of left lower extremity; M85.80 Other specified disorders of bone density and structure, unspecified site; J30.2 Other seasonal allergic rhinitis; Z82.49 Family history of ischemic heart disease and other diseases of the circulatory system; R00.2 Palpitations; E78.2 Mixed hyperlipidemia; Z91.89 Other specified personal risk factors, not elsewhere classified; B00.9 Herpesviral infection, unspecified | CPT/HCPCS: 83036; 93005; 96127; 99212 ==

== ENCOUNTER 2025-05-03 08:46 | Outpatient (REF) | payer MEDICARE, SELFPAY ==
[2025-05-03 12:11] LABS: Alanine Aminotransferase 18 U/L (0-31); Albumin Level 4.4 g/dL (3.5-5.0); Alkaline Phosphatase 63 U/L (39-117); Anion Gap 11 (12-20); Aspartate Amino Transferase 27 U/L (5-31); Blood Urea Nitrogen 13 mg/dL (9-16); Calcium 9.2 mg/dL (8.4-10.2); Carbon Dioxide 26 mmol/L (22-29); Chloride 109 mmol/L (96-108); Cholesterol 213 mg/dL (<200); Estimated Glomerular Filt Rate > 60; HDL Cholesterol 60 mg/dL (>40); Potassium 3.9 mmol/L (3.3-5.1); Sodium 142 mmol/L (135-145); Total Protein 7.2 g/dL (6.5-8.0); Triglycerides 128 mg/dL (<150)
== END 2025-05-03 08:47 | disposition home or self-care (01) ==
LOC: HO.WFDLDS 08:46
PROVIDERS: Visit Provider Nurse Practitioner Family
DX: N95.1 Menopausal and female climacteric states (principal); E78.5 Hyperlipidemia, unspecified; M85.80 Other specified disorders of bone density and structure, unspecified site; Z13.9 Encounter for screening, unspecified
CPT/HCPCS: 36415; 80053; 80061; 82306

== ENCOUNTER 2025-05-24 08:37 | Outpatient (AMB) | payer MEDICARE, SELFPAY ==
--- NOTE | 2025-05-24 08:49 | A.OFFVIS_ITS ---
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 She is a pleasant 74 year female without any major cardiovascular history or cardiovascular risk factors except for mild hyperlipidemia. Patient over the last 6 months has been having increasing symptoms of fatigue and shortness of breath with exertion. She thought that this was probably related to deconditioning and lack of exercising but felt that she might have underlying heart issues in his not started exercise program. For these symptoms she underwent Holter monitor which showed baseline normal sinus rhythm with occasional PAC in his short runs of SVT. Patient has no symptoms of palpitations at this point time. She is referred here for these cardiac arrhythmias. Patient says 10 years ago while she was in [place] working there she did have symptoms of palpitations however the symptoms have now subsided. She denies any orthopnea, PND, leg edema. Denies any symptoms of chest pain. Her main concern is her inability to participate in regular exercise as she is still in the past. She denies any lightheadedness, syncope. Currently not on any medications for high blood pressure diabetes or hyperlipidemia. 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 Hx of varicose veins Hx of Guillain-[place] syndrome Surgical History History of colonoscopy (~2021) Hx of cervical biopsy H/O varicose vein stripping Family History Father Family history of Alzheimer's disease History of dementia Mother Family history of Alzheimer's disease History of dementia Paternal Grandmother Family history of Alzheimer's disease History of dementia Paternal Grandfather Family history of Alzheimer's disease History of dementia Brother History of COPD Sister Afib Social History Housing: Apartment Alcohol intake: current Alcohol intake frequency: a few times a month Patient Tobacco Use Status: Never used Tobacco e-Cigarette/Vaping Use: Never Used service: No Current occupational status: retired Sexual orientation: Straight/Heterosexual Gender identity: Female Cognitive needs: No Hearing needs: No Vision needs: Yes Female Reproductive History Menstrual Age of Menarche: 15 Review of Systems Const Denies chills, Denies daytime sleepiness, Reports fatigue, Denies fever(s), Denies frequent falls, Denies poor appetite, Denies snoring, Denies stops breathing during sleep, Denies weakness, Denies weight gain and Denies weight loss Eyes Denies loss of vision ENT Denies dizziness and Denies hearing loss Card Denies chest pain, Denies claudication, Reports leg edema, Denies lightheadedness, Denies palpitations, Denies dyspnea, Denies dyspnea on exertion and Denies orthopnea Resp Denies cough, Denies excessive phlegm production, Denies dyspnea, Denies dyspnea on exertion, Denies snoring and Denies wheezing GI Denies abdominal pain, Denies hematochezia, Denies change in bowel habits, Denies nausea and Denies vomiting Denies urinary frequency and Denies dysuria Musc Denies arthralgias, Denies muscle weakness, Denies numbness and Denies other (frequent falls) Skin/Breast Denies nail changes and Denies rash Neuro Denies Abnormal speech present, Denies dizziness, Denies frequent falls, Denies loss of vision, Denies memory loss, Denies numbness and Denies weakness Psych Denies depression and Denies memory loss Endo Reports fatigue and Denies palpitations Balta/Lymph Reports easy bruising and Reports other (anemia) Aller/Immun Denies wheezing Physical Exam Vital Signs: Last Vital Signs Pulse 67 05/24/25 08:55 BP 118/58 L 05/24/25 08:55 BMI result Body Mass Index 25.8 Const General: cooperative, comfortable, no acute distress, alert, awake, Physically active and well groomed Nutritional Appearance: average body habitus Orientation/consciousness: patient oriented x3 Limitations: no limitations HEENT Head: Yes normocephalic and Yes atraumatic Neck Neck: Yes trachea midline, Yes supple and Yes no JVD Resp Effort & Inspection: normal respiratory effort Auscultation: clear to auscultation bilaterally Cardio Jugular venous distension: no JVD Palpation: normal PMI Rate: regular rate Rhythm: regular rhythm Heart sounds: S1 normal heart sound present, S2 normal heart sound present, no click, no gallops and no murmurs GI Auscultation: normal bowel sounds Skin General skin exam: no rashes or lesions noted Neuro General: patient oriented x3 and no focal motor deficits Speech: No Abnormal speech present Extrem General: Yes no clubbing, cyanosis or edema Office Procedures EKG Details: EKG shows normal sinus rhythm with low-voltage QRS with poor R-wave progression most likely lead placement with nonspecific T-wave changes in the anterior leads [id number], Complete Assessment & Plan Assessment & Plan (1) Short of breath on exertion: Code(s): R06.02 - Shortness of breath Category: Medical Plan: Patient was symptoms of recent exercise intolerance symptoms fatigue and exertional shortness of breath. Given her age and some risk factors I think she would have underlying structural heart disease including myocardial ischemia and/or LV structural abnormalities. I would suggest her to undergo a stress echocardiogram to evaluate for myocardial ischemia and obstructive coronary artery disease as well as an echocardiogram to evaluate for cardiac structure and function including LV systolic and diastolic function and valvular function. These tests will be scheduled in near future. Further treatment based on the findings. If these tests are within normal limits I would suggest if she is interested in pursuing coronary calcium score to guide treatment for hyperlipid emia. (2) Cardiac arrhythmia: Code(s): I49.9 - Cardiac arrhythmia, unspecified Category: Medical Plan: Patient does have occasional PACs and short runs of SVT although she has no current symptoms associated with it. Does have family history of sister having atrial fibrillation. We discussed about risk of developing atrial fibrillation inpatient with PACs. However given lack of symptoms and any prolonged episodes no pharmacotherapy is recommended at this point time. Overall benign nature of isolated PACs and short SVTs especially in the setting of normal structure of the heart were discussed. Avoidance of stimulants was discussed. Stress mitigation strategies were discussed. If his symptoms increase his she has recurrent or fast heart rate she is advised to seek medical care and/or obtain a EKGs at that time. Will follow up in the clinic in 1 year's time, sooner p.r.n.. Thank you for allowing me to partake in her care Orders: Orders CA echo stress exercise Today R06.02 - Shortness of breath CA echo transthoracic complete Today R06.02 - Shortness of breath Coding Level of Care Code New Pt Level 4 (01123) Complex EM visit Add On G2211 Diagnoses Short of breath on exertion R06.02 Cardiac arrhythmia I49.9 CPT Codes EKG - CPT: 91878-Gwnipskgoeouskffa, Complete ([id number])
[2025-05-24 08:55] VITALS: BP 118/58; PULSE 67; BMI 25.8
== END 2025-05-24 09:19 | disposition home or self-care (01) ==
LOC: HO.HCS 08:38
PROVIDERS: PCP Nurse Practitioner Family; Visit Provider Internal Medicine Cardiovascular Disease
DX: R06.02 Shortness of breath (principal); I49.9 Cardiac arrhythmia, unspecified; R94.31 Abnormal electrocardiogram [ECG] [EKG]
CPT/HCPCS: 93010; 99214; G2211

== ENCOUNTER → 2025-05-24 08:37 | Outpatient (BNVA) | payer MEDICARE, SELFPAY | PROVIDERS: PCP Nurse Practitioner Family; Visit Provider Internal Medicine Cardiovascular Disease | DX: R06.02 Shortness of breath (principal); I49.9 Cardiac arrhythmia, unspecified; R94.31 Abnormal electrocardiogram [ECG] [EKG] | CPT/HCPCS: 93005; 99212 ==

== ENCOUNTER → 2025-07-18 08:47 | Outpatient (REF) | payer MEDICARE, SELFPAY ==
--- NOTE | 2025-07-18 08:49 | CA_ITS ---
Transthoracic Echocardiogram Patient (Last, First, Middle): Adriane Munson M Gender: Female Date of : 1950 Age: 74 Procedure Date: 07/18/2025 Procedure Type: Transthoracic Echocardiogram Location: OP Height: 172.72 cm Weight: 76.66 kg BSA: 1.90 m2 Heart Rate: 61 bpm BP: 118 / 58 mmHg Sample Worker: PAPO Referring MD: Tucker Ryan MD Symptoms: R06.02 - Shortness of breath Study Quality: Adequate ECG Rhythm: Sinus Conclusions: - The left ventricular systolic function is normal. The calculated ejection fraction is 61% by biplane method. - No obvious valvular pathology seen on this study. Findings Left Ventricle Normal left ventricular cavity size. There is normal left ventricular wall thickness. The left ventricular systolic function is normal. The calculated ejection fraction is 61% by biplane method. There is no evidence of regional wall motion abnormalities. Diastolic function is normal for age. Right Ventricle Normal right ventricular cavity size. There is mildly decreased right ventricular systolic function. Atria Both atria are normal in size. Aortic Valve There is a normal trileaflet aortic valve. There is no aortic valve stenosis. There is no aortic valve regurgitation. Mitral Valve The mitral valve appears normal. There is no mitral valve regurgitation. There is no mitral valve stenosis. Pulmonic Valve The pulmonic valve is likely normal. Tricuspid Valve Normal tricuspid valve structure. There is no tricuspid valve regurgitation. Tricuspid regurgitation envelope is inadequate for calculation of right ventricular systolic pressure. Great Vessels The asc aorta is normal in size. Venous The inferior vena cava is normal in size and collapses greater than 50% with inspiration. Pericardium/Pleural There is no evidence of pericardial effusion. Prior Study Comparison No prior study available for comparison. Recommendations, Care & Conclusions No obvious valvular pathology seen on this study. Measurements 2D Linear Measurements IVSd: 0.73 0.6-0.9/0.6-1.0 cm LVIDd: 4.80 3.9-5.3/4.2-5.9 cm LVIDd Index: 2.53 2.4-3.2/2.2-3.1 cm/m2 LVIDs: 2.85 2.0-3.6 cm LVPWd: 0.51 0.7-1.1 cm LA Diam: 3.60 2.7-3.8/3.0-4.0 cm LAIDs Index: 1.89 1.5-2.3 cm/m2 LV Mass: 113.81 67-162/88-224 g LV Mass Index: 59.90 43-95/49-115 g/m2 LVOT Diam: 2.30 3.0+(-)1.3 cm 2D Systolic Function EF 4C: 71.90 >55% EF 2C: 52.40 >55% EF BiP: 61.20 >55% Mitral Valve MV Pk E: 0.53 MV PK A: 0.72 MV Decel Time: 323.00 E/A: 0.70 E'Lateral: 9.46 E'Medial: 5.66 E/E' Med: 9.30 E/E' Lat: 5.60 PHT: 95.00 MVA PHT: 2.32 Decel Latimer: 1.63 Aortic Valve AoV Pk Gino: 1.03 AoV Pk Grad: 4.00 CARLY: 4.00 LVOT LVOT Pk Gino: 1.00 LVOT Mn Gino: 0.67 LVOT VTI: 0.21 LVOT Pk Grad: 4.00 LVOT Mn Grad: 2.00 LVOT Diam: 2.30 LVOT Area: 4.15 Diastolic Function MV Pk E: 0.53 MV Pk A: 0.72 E/A: 0.70 E'Medial: 5.66 E/E' Med: 9.30 E' Laterial: 9.46 E/E' Lat: 5.60 Right Ventricle TAPSE (mm): 16.80 TVS' Gino: 8.05 Tricuspid Valve RA Press: 3.00 Great Vessels Aorta Sinus of Valsalva: 3.30 2.0-3.5 cm Ao Asc: 3.40 2.1-3.4 cm Pulmonary Veins Pulm Vein S/D 1.40 Pulmonary Valve PV Pk Gino: 0.55 Peak PV Grad: 1.00 Updated in Other Vendor System with Status of Final Colten Rivera MD electronically signed on 07/19/2025 3:40:33 PM with status of Final
== END ==
LOC: HO.CARD 08:47
PROVIDERS: PCP Nurse Practitioner Family; Visit Provider Internal Medicine Cardiovascular Disease
DX: R06.02 Shortness of breath (principal)
CPT/HCPCS: 93306

== ENCOUNTER → 2025-07-18 08:49 | Outpatient (BNV) | payer MEDICARE, SELFPAY | PROVIDERS: PCP Nurse Practitioner Family; Visit Provider Internal Medicine | DX: R06.02 Shortness of breath (principal) | CPT/HCPCS: 93306 ==

== ENCOUNTER → 2025-07-28 11:02 | Outpatient (REF) | payer MEDICARE, SELFPAY ==
--- NOTE | 2025-07-28 11:05 | CA_ITS ---
Acquisition Time: 2025-07-28 11:13:39 Total Exercise Time: 00:07:50 Test Indications: Abnormal ECG PAC'S SVT,Dyspnea,Palpitations Medications: CETYERIZINE Protocol: MARIA EUGENIA Max HR: 171 BPM 116% of Pred: 147 BPM Max BP: 114/60 mmHG Max Work Load: 9.8 METS Exercise stress test with exercise 7 min 50 sec of Maria Eugenia protocol, acheving 102% MPHR, with mild shortness of breath, without arrythmia, with blunted BP response based on BPs taken by transportation refrigeration technician, without EKG changes meeting criteria for ischemia. Echo images obtained at rest and immediately post peak exercise. Definity contrast used. Breathing normalized in recovery. Test reviewed with Dr Ryan. Referred By: Tucker Ryan Electronically Signed By: ESTEPHANIA MCHUGH
== END ==
LOC: HO.CARD 11:02
PROVIDERS: PCP Nurse Practitioner Family; Visit Provider Internal Medicine Cardiovascular Disease
DX: R06.02 Shortness of breath (principal)
CPT/HCPCS: 93350; Q9957

== ENCOUNTER → 2025-07-28 11:05 | Outpatient (BNV) | payer MEDICARE, SELFPAY | PROVIDERS: PCP Nurse Practitioner Family; Visit Provider Nurse Practitioner Family | DX: R94.31 Abnormal electrocardiogram [ECG] [EKG] (principal) | CPT/HCPCS: 93016; 93018; 93350; 93352 ==

== ENCOUNTER 2025-08-02 08:23 | Outpatient (REF) | payer MEDICARE, SELFPAY ==
--- NOTE | ~2025-08-02 | MM_ITS ---
EXAMINATION: DXA BONE DENSITY AXIAL HISTORY: Z78.0 - Asymptomatic menopausal state TECHNIQUE: [place] Dual energy absorptiometry (DEXA) of the lumbar spine, total left hip, and femoral neck was performed. COMPARISON: Comparison is made with the prior examination dated 06/25/2023. FINDINGS: The bone mineral density of the lumbar spine is 1.029 g/cm2, corresponding to a T-score of -1.3, and a Z-score of 0.1. This is indicative of osteopenia. This represents a BMD change of 1.3% compared to the prior exam. This is not statistically significant. The bone mineral density of the left total hip is 0.849 g/cm2, corresponding to a T-score of -1.3, and a Z-score of 0.1. This is indicative of osteopenia. This represents a BMD change of 0.6% compared to the prior exam. This is not statistically significant. The bone mineral density of the left femoral neck is 0.762 g/cm2, corresponding to a T-score of -2.0, and a Z-score of -0.4. This is indicative of osteopenia. This represents a BMD change of 0.5% compared to the prior exam. FRACTURE RISK: The FRAX index suggests a ten year probability of major osteoporotic fracture of 13.0%, and of hip fracture 3.1%. MM/XR DEXA axial skeleton IMPRESSION: Based on bone mineral density, and according to World Health Organization (WHO) criteria, the diagnosis is consistent with osteopenia. Statistically, 68% of repeat scans fall within 1 SD (+/- 0.010 g/cm2 for AP spine L1-L4) and 1 SD (+/- 0.012 g/cm2 for femur total) FRAX is a trademark of the [employer]'s [place] for Metabolic Bone Disease, a World Health Organization (WHO) Collaborating Center. Electronically signed by: Buddy Perla MD 08/02/2025 09:15 AM EDT
== END 2025-08-02 08:24 | disposition home or self-care (01) ==
LOC: HO.MAMMO 08:23
PROVIDERS: PCP Nurse Practitioner Family; Visit Provider Obstetrics & Gynecology
DX: Z12.31 Encounter for screening mammogram for malignant neoplasm of breast (principal); Z13.820 Encounter for screening for osteoporosis; Z78.0 Asymptomatic menopausal state
CPT/HCPCS: 77063; 77067; 77080

== ENCOUNTER → 2025-08-02 08:45 | Outpatient (BNV) | payer MEDICARE, SELFPAY | PROVIDERS: PCP Nurse Practitioner Family; Visit Provider Radiology Diagnostic Radiology | DX: E28.39 Other primary ovarian failure (principal) | CPT/HCPCS: 77080 ==

== ENCOUNTER → 2025-08-18 14:27 | Outpatient (BNVA) | payer MEDICARE, SELFPAY | PROVIDERS: PCP Nurse Practitioner Family; Visit Provider Obstetrics & Gynecology | DX: M81.0 Age-related osteoporosis without current pathological fracture (principal) | CPT/HCPCS: 99212 ==

== ENCOUNTER 2025-08-18 14:42 | Outpatient (AMB) | payer MEDICARE, SELFPAY ==
--- NOTE | 2025-08-18 14:46 | MHC.OFFVIS ---
Intake Visit Reasons: Bone Density Follow UP Allergies Seasonal Allergies Allergy (Intermediate, Verified 05/03/25 08:19) Itchy Eyes HPI Comments Details: Presenting for DEXA scan follow-up which showed the following: The bone mineral density of the lumbar spine is 1.029 g/cm2, corresponding to a T-score of -1.3, and a Z-score of 0.1. This is indicative of osteopenia. This represents a BMD change of 1.3% compared to the prior exam. This is not statistically significant. The bone mineral density of the left total hip is 0.849 g/cm2, corresponding to a T-score of -1.3, and a Z-score of 0.1. This is indicative of osteopenia. This represents a BMD change of 0.6% compared to the prior exam. This is not statistically significant. The bone mineral density of the left femoral neck is 0.762 g/cm2, corresponding to a T-score of -2.0, and a Z-score of -0.4. This is indicative of osteopenia. This represents a BMD change of 0.5% compared to the prior exam. FRACTURE RISK: The FRAX index suggests a ten year probability of major osteoporotic fracture of 13.0%, and of hip fracture 3.1%. 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 Hx of varicose veins Hx of Guillain-[place] syndrome Surgical History History of colonoscopy (~2021) Hx of cervical biopsy H/O varicose vein stripping Family History Father Family history of Alzheimer's disease History of dementia Mother Family history of Alzheimer's disease History of dementia Paternal Grandmother Family history of Alzheimer's disease History of dementia Paternal Grandfather Family history of Alzheimer's disease History of dementia Brother History of COPD Sister Afib Social History Housing: Apartment Alcohol intake: current Alcohol intake frequency: a few times a month Patient Tobacco Use Status: Never used Tobacco e-Cigarette/Vaping Use: Never Used service: No Current occupational status: retired Sexual orientation: Straight/Heterosexual Gender identity: Female Cognitive needs: No Hearing needs: No Vision needs: Yes Female Reproductive History Menstrual Age of Menarche: 15 Review of Systems Const All systems reviewed & are unremarkable except as noted in HPI and below Reports as per HPI and Reports no additional complaints GI Reports no additional complaints Reports no additional complaints Assessment & Plan Assessment & Plan (1) High risk for fracture due to osteoporosis by DEXA scan: Code(s): M81.0 - Age-related osteoporosis without current pathological fracture Category: Medical Plan: Discussed with the patient the DEXA results and FRAX risk. Discussed with the patient all the options for therapeutic treatment including mechanism of actions, risks and benefits of Bisphosphonates (benefits=osteoporosis prevention; Risks=GERD, osteonecrosis of jaw), Raloxifene, (benefits=osteoporosis prevention and breast ca risk reduction; Risks=DVT), Forteo. The patient decided to go ahead with Fosamax so instructions given to the pt on how to take the med: NPO x 30 minutes, large amount of water , stay upright x 30 minutes, inform her dentist of alendronate intake in case invasive dental work. Also Caltrate+D 600 mg x2/day was recommended to the patient. Medications: New alendronate (Fosamax) 70 mg PO QWEEK 14 tabs 3RF Coding Level of Care Code Est Pt Level 3 (49983) Diagnoses High risk for fracture due to osteoporosis by DEXA scan M81.0
== END 2025-08-18 14:56 | disposition home or self-care (01) ==
LOC: HO.HWS 14:42
PROVIDERS: PCP Nurse Practitioner Family; Visit Provider Obstetrics & Gynecology
DX: M81.0 Age-related osteoporosis without current pathological fracture (principal)
CPT/HCPCS: 99213

== ENCOUNTER 2025-10-18 08:24 | Outpatient (AMB) | payer MEDICARE, SELFPAY ==
--- NOTE | 2025-10-18 08:24 | A.OFFVIS_ITS ---
Vital Signs 10/18/25 08:26 Height 5 ft 7 in Weight 165 lb BMI 25.8 BP 92/66 Blood Pressure Location Rt brachial Position Sitting Pulse 76 Pulse Source Pulse Oximeter Pulse Oximetry (%) 95 Oxygen Delivery Method Room Air Intake Visit Reasons: [place] screening Intake Note: New pt for initial colo screening. Hx of negative cologuard 2021. CC; Pt denies any current GI sx or concerns. Reports that her cologuards have always been negative, but her OBGYN wanted her to get a colonoscopy done at least once for peace of mind. Employee Health Rn Required: No Accompanied by: Self / Same As Patient Allergies Seasonal Allergies Allergy (Intermediate, Verified 10/18/25 08:25) Itchy Eyes HPI HPI [place] screening: Details: 75 year old? female with past medical history of allergies, osteoporosis, varicose veins, hyperlipidemia is here today for initial consultation. Patient is here to discuss going for colonoscopy screening. Patient?reports that even though her Cologuard test were ovaries negative her OBGYN provider encouraged her to go for colorectal screening via colonoscopy.? Patient denies any gastrointestinal symptoms in the past or at present.? Denies any family history of CRC.? Denies history of difficulty with sedation or anesthesia in the past.? Negative for history of sleep apnea.? Denies any history of cardiac, renal, pulmonary, or hepatic disease.?? No history of infectious? diseases like hepatitis A, B, C, HIV or tuberculosis.? 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 Hx of varicose veins Hx of Guillain-Columbus syndrome Surgical History History of colonoscopy (~2021) Hx of cervical biopsy H/O varicose vein stripping Family History Father Family history of Alzheimer's disease History of dementia Mother Family history of Alzheimer's disease History of dementia Paternal Grandmother Family history of Alzheimer's disease History of dementia Paternal Grandfather Family history of Alzheimer's disease History of dementia Brother History of COPD Sister Afib Social History Housing: Apartment Alcohol intake: current Alcohol intake frequency: a few times a month Patient Tobacco Use Status: Never used Tobacco e-Cigarette/Vaping Use: Never Used service: No Current occupational status: retired Sexual orientation: Straight/Heterosexual Gender identity: Female Cognitive needs: No Hearing needs: No Vision needs: Yes Female Reproductive History Menstrual Age of Menarche: 15 Review of Systems Const Denies weight gain and Denies weight loss ENT Reports no additional complaints, Denies dysphagia and Denies odynophagia Card Reports no additional complaints Resp Reports no additional complaints GI Denies abdominal pain, Denies belching, Denies melena, Denies bloating, Denies change in bowel habits, Denies dysphagia, Denies excessive flatus, Denies dyspepsia, Denies heartburn, Denies diarrhea, Denies loose stools, Denies nausea, Denies odynophagia and Denies vomiting Musc Reports no additional complaints Neuro Reports no additional complaints Psych Reports no additional complaints Endo Reports no additional complaints Physical Exam Vital Signs: Last Vital Signs Pulse 76 10/18/25 08:26 BP 92/66 10/18/25 08:26 Pulse Ox 95 10/18/25 08:26 Oxygen Delivery Method Room Air 10/18/25 08:26 BMI result Body Mass Index 25.8 Const General: healthy appearing, no acute distress and well developed Nutritional Appearance: well nourished Orientation/consciousness: patient oriented x3 Resp Effort & Inspection: normal respiratory effort, able to speak in complete sentences, no tracheal deviation and symmetric chest movement Auscultation: clear to auscultation bilaterally Cardio Rate: regular rate GI Inspection: Yes normal to inspection and No distended Palpation (GI): Soft to palpation, not firm, nontender and No hepatosplenomegaly present Auscultation: normal bowel sounds General: Yes no CVA tenderness Back/Spine/Pelvis Back: no CVA tenderness Skin General skin exam: elasticity normal, turgor normal and dry skin Neuro General: patient oriented x3 Psych Appearance: grossly normal Mental Status: mental status grossly normal Assessment & Plan Assessment & Plan (1) Screen for colon cancer: Code(s): Z12.11 - Encounter for screening for malignant neoplasm of colon Plan Patient denies any GI, cardiac or respiratory symptoms.? Denies any issues with anesthesia in the past.? Denies any history of sleep apnea.? No history infectious diseases in the past or present.? Not on any anticoagulation therapy.? No family history of colon cancer.? Patient denies melena, hematochezia, unintentional weight loss or ribbon like stools.? Discussed at length the pre-procedure,? prep, diet & medications as well as what to expect prior, during and after the procedure.?? Stressed the importance of good bowel prep.? Recommended the use of Vaseline or Calmoseptine OTC & baby wipes with bowel movements to promote comfort.? ?Patient verbalizes understanding and agrees to plan of care.? She was given the opportunity to ask questions and all questions answered.? We will see her after the procedure.? Orders: Referrals GI Procedure Notification Z12.11 - Encounter for screening for malignant neoplasm of colon Medications: New bisacodyl (Dulcolax (bisacodyl)) take 4 tabs at noon the day before your colonoscopy 20 mg (4 x 5 mg) PO ONCE 4 tabs 0RF constipation 1 day Z12.11 - Encounter for screening for malignant neoplasm of colon polyethylene glycol 3350 (Miralax) As directed by gastroenterology department at [facility] 238 grams PO ONCE 238 grams 0RF Z12.11 - Encounter for screening for malignant neoplasm of colon Coding Level of Care Code New Pt Level 3 (96438) Diagnoses Screen for colon cancer Z12.11 Time Spent (min) 40 Comment 30 minutes spent with patient and additional 10 minutes spent reviewing her records
[2025-10-18 08:26] VITALS: BP 92/66; PULSE 76; O2SAT 95; BMI 25.8
== END 2025-10-18 09:19 | disposition home or self-care (01) ==
PROVIDERS: PCP Nurse Practitioner Family; Visit Provider Nurse Practitioner Family
DX: Z01.818 Encounter for other preprocedural examination (principal); Z12.11 Encounter for screening for malignant neoplasm of colon
CPT/HCPCS: 99024

== ENCOUNTER → 2025-10-18 08:24 | Outpatient (BNVA) | payer MEDICARE, SELFPAY | PROVIDERS: PCP Nurse Practitioner Family; Visit Provider Nurse Practitioner Family | DX: Z12.11 Encounter for screening for malignant neoplasm of colon (principal) | CPT/HCPCS: 99212 ==